=== PATIENT | female | born 1990 | race African-American/Black ===

== ENCOUNTER 2017-11-29 12:47 | Emergency (ER) | payer MEDICAID ==
[~2017-11-29 12:47] MED LIST: ALBUTEROL; GABA-531 PO; HUMALOG SUBCUT; INSU100C11 SUBCUT; LISI40TA4 PO; SUCR1TAB PO; ZOLP5TAB2 PO
== END 2017-11-29 14:38 | disposition left against medical advice (07) ==
LOC: ER 14:33
DX: Z53.21 Procedure and treatment not carried out due to patient leaving prior to being seen by health care provider (principal)

== ENCOUNTER 2017-12-17 14:54 | Inpatient (IN) | payer MEDICAID ==
[~2017-12-17] VITALS: Ht 154.9 cm; Wt 66.2 kg
[2017-12-17 15:53] LABS: BASOPHILS % 1.3 % (0.0-2.0); EOSINOPHILS % 0.5 % (0.0-5.0); HEMATOCRIT. 37.2 % (36.0-48.0); HEMOGLOBIN. 11.6 g/dL (12.0-16.0); LYMPHOCYTES % 24.6 % (20.0-50.0); MEAN CORPUSCULAR HEMOGLOBIN 27.8 pg (28.0-32.0); MEAN CORPUSCULAR VOLUME 89.1 fL (81.0-99.0); MEAN PLATELET VOLUME 8.2 fl (7.4-10.4); MONOCYTES % 4.3 % (2.0-8.0); NEUTROPHILS % 69.3 % (40.0-76.0); PLATELET 287 x1000/uL (130-400); RED BLOOD CELL COUNT 4.17 mill/uL (4.2-5.4); RED CELL DISTRIBUTION WIDTH 15.2 % (11.6-14.6)
[2017-12-17 15:57] LABS: CHLORIDE 88 mEq/L (98-107)
[2017-12-17 15:59] LABS: INR 0.9; PROTHROMBIN TIME 9.8 sec (9.4-11.6)
[2017-12-17] MEDS ORDERED: SODIUM CHLORIDE 0.9% 1,000 ML IV ONE ×2 (16:15→18:30)
[2017-12-17 16:54] LABS: CLARITY URINE CLEAR (CLEAR); COLOR URINE YELLOW (YELLOW); KETONES URINE TRACE (NEGATIVE); LEUKOCYTE ESTERASE URINE NEGATIVE (NEGATIVE); NITRITE URINE NEGATIVE (NEGATIVE); OCCULT BLOOD URINE NEGATIVE (NEGATIVE); PH URINE 6.5 (4.5-8.0); PROTEIN URINE NEGATIVE (NEGATIVE); SPECIFIC GRAVITY URINE 1.028 (1.005-1.030); UROBILINOGEN URINE 0.2 E.U./dL (0.2-1.0)
[2017-12-17] MEDS ORDERED: INSULIN REGULAR (DRIP) 100 UNITS in SODIUM CHLORIDE 0.9% 99 ML IV ONE ×2 (18:21→18:45)
[2017-12-17] MEDS ORDERED: MORPHINE SULFATE 4 MG/ML CPJ (NOT FOR IM USE) IV ONE (18:30)
[2017-12-17] MEDS ORDERED: ONDANSETRON HCL 4MG/2ML VIAL IV ONE (18:30)
[2017-12-17 18:50] LABS: PHOSPHORUS 4.7 mg/dL (2.5-4.9)
[2017-12-17] MEDS ORDERED: DIPHENHYDRAMINE 50MG/ML VIAL IV ONE (19:30)
[2017-12-17 20:22] LABS: CHLORIDE 102 mEq/L (98-107)
[2017-12-17 22:36] VITALS: BP 115/74
[2017-12-17 23:00] VITALS: BP 115/78
[2017-12-17 23:11] LABS: CHLORIDE 107 mEq/L (98-107)
[2017-12-17 23:26] LABS: PHOSPHORUS 3.1 mg/dL (2.5-4.9)
[2017-12-17] MEDS: HYDROMORPHONE HCL/PF 2MG/ML CPJ IM PRN (23:26)
[2017-12-17] MEDS: ONDANSETRON HCL 4MG/2ML VIAL IV PRN (23:26)
[2017-12-17 23:33] VITALS: BP_SYST 115; BP_SYST 125; BP_DIAS 72; BP_DIAS 79
[2017-12-17] MEDS: DIPHENHYDRAMINE 50MG/ML VIAL IV PRN (23:37)
[2017-12-18] VITALS (36 sets, daily range): BP systolic 95–128; BP diastolic 48–96
[2017-12-18] MEDS: SODIUM CHL 0.9% + KCL 20MEQ/L 1,000 ML IV SCH ×4 (00:36→20:01)
[2017-12-18] MEDS ORDERED: DEXTROSE 50% WATER 50ML SYRINGE IV PRN ×2 (00:45)
[2017-12-18] MEDS ORDERED: INSULIN REGULAR (DRIP) 100 UNITS in SODIUM CHLORIDE 0.9% 99 ML IV PRN (01:00)
[2017-12-18] MEDS: HYDROMORPHONE HCL/PF 2MG/ML CPJ IM PRN ×2 (04:02→08:57)
[2017-12-18] MEDS ORDERED: INSULIN LISPRO 100 UNITS/ML SUBCUT SCH (07:00)
[2017-12-18 07:06] LABS: CHLORIDE 103 mEq/L (98-107)
[2017-12-18 07:12] LABS: PHOSPHORUS 4.1 mg/dL (2.5-4.9)
[2017-12-18] MEDS: BLOOD SUGAR DIAGNOSTIC STRIP TEST SCH ×4 (08:08→20:17)
[2017-12-18] MEDS: INSULIN LISPRO 100 UNITS/ML SUBCUT SCH ×7 (08:20→20:26)
[2017-12-18] MEDS: GABAPENTIN 300MG CAPSULE PO SCH ×3 (08:21→18:30)
[2017-12-18] MEDS: SUCRALFATE 1G TABLET PO SCH ×4 (08:21→20:12)
[2017-12-18] MEDS: DIPHENHYDRAMINE 50MG/ML VIAL IV PRN ×2 (08:22→16:22)
[2017-12-18] MEDS: LISINOPRIL 40MG TABLET PO SCH (08:22)
[2017-12-18] MEDS: HYDROMORPHONE HCL/PF 2MG/ML CPJ IV PRN ×3 (11:59→22:28)
[2017-12-18] MEDS: HYDROCODONE/ACETAMINOPHEN 10/325MG TABLET PO PRN ×2 (13:36→20:12)
[2017-12-18] MEDS: ENOXAPARIN 40MG/0.4ML SYR SUBCUT SCH (16:35)
[2017-12-18] MEDS: INSULIN GLARGINE UD 100 UNITS/ML SYR SUBCUT SCH (22:27)
[2017-12-19 00:11] VITALS: BP 109/70
[2017-12-19] MEDS: DIPHENHYDRAMINE 50MG/ML VIAL IV PRN ×2 (01:32→14:54)
[2017-12-19] MEDS: HYDROMORPHONE HCL/PF 2MG/ML CPJ IV PRN ×6 (01:32→20:12)
[2017-12-19] MEDS: SODIUM CHL 0.9% + KCL 20MEQ/L 1,000 ML IV SCH ×3 (02:40→16:01)
[2017-12-19 04:00] VITALS: BP 107/68
[2017-12-19] MEDS: INSULIN LISPRO 100 UNITS/ML SUBCUT SCH ×7 (06:48→21:15)
[2017-12-19] MEDS: BLOOD SUGAR DIAGNOSTIC STRIP TEST SCH ×4 (06:49→21:16)
[2017-12-19 08:00] VITALS: BP 112/67
[2017-12-19] MEDS: GABAPENTIN 300MG CAPSULE PO SCH ×3 (08:20→16:01)
[2017-12-19] MEDS: SUCRALFATE 1G TABLET PO SCH ×4 (08:20→21:14)
[2017-12-19] MEDS: LISINOPRIL 40MG TABLET PO SCH (08:21)
[2017-12-19 10:47] LABS: CHLORIDE 110 mEq/L (98-107)
[2017-12-19 12:00] VITALS: BP 108/67
[2017-12-19 16:00] VITALS: BP 125/94
[2017-12-19] MEDS: ENOXAPARIN 40MG/0.4ML SYR SUBCUT SCH (16:01)
[2017-12-19 20:00] VITALS: BP 143/100
[2017-12-19] MEDS: INSULIN GLARGINE UD 100 UNITS/ML SYR SUBCUT SCH (21:15)
[2017-12-20] VITALS: BP 135/83
[2017-12-20] MEDS: HYDROMORPHONE HCL/PF 2MG/ML CPJ IV PRN ×6 (00:20→23:26)
[2017-12-20] MEDS: SODIUM CHL 0.9% + KCL 20MEQ/L 1,000 ML IV SCH ×3 (00:26→12:00)
[2017-12-20] MEDS: DIPHENHYDRAMINE 50MG/ML VIAL IV PRN ×3 (01:04→23:26)
[2017-12-20 04:00] VITALS: BP 132/95
[2017-12-20] MEDS: INSULIN LISPRO 100 UNITS/ML SUBCUT SCH ×7 (07:15→20:31)
[2017-12-20] MEDS: BLOOD SUGAR DIAGNOSTIC STRIP TEST SCH ×4 (07:16→20:32)
[2017-12-20 08:00] VITALS: BP 127/89
[2017-12-20] MEDS: LISINOPRIL 40MG TABLET PO SCH (08:09)
[2017-12-20] MEDS: GABAPENTIN 300MG CAPSULE PO SCH ×3 (08:09→16:15)
[2017-12-20] MEDS: SUCRALFATE 1G TABLET PO SCH ×4 (08:09→20:21)
[2017-12-20 12:00] VITALS: BP 123/83
[2017-12-20] MEDS ORDERED: SODIUM BICARBONATE 4% (2.4MEQ) 5ML VIAL IV ONE (13:08)
[2017-12-20] MEDS ORDERED: LIDOCAINE HCL/PF 1% 10 MG/ML 5ML VIAL ONE (13:08)
[2017-12-20 16:00] VITALS: BP 124/88
[2017-12-20] MEDS: ENOXAPARIN 40MG/0.4ML SYR SUBCUT SCH (16:15)
[2017-12-20 20:40] VITALS: BP 108/72
[2017-12-20] MEDS: INSULIN GLARGINE UD 100 UNITS/ML SYR SUBCUT SCH (21:09)
[2017-12-21 00:13] VITALS: BP 116/72
[2017-12-21] MEDS: HYDROMORPHONE HCL/PF 2MG/ML CPJ IV PRN ×8 (03:06→23:51)
[2017-12-21 05:08] VITALS: BP 113/75
[2017-12-21] MEDS: BLOOD SUGAR DIAGNOSTIC STRIP TEST SCH ×4 (06:09→21:15)
[2017-12-21] MEDS: INSULIN LISPRO 100 UNITS/ML SUBCUT SCH ×6 (06:25→21:35)
[2017-12-21] MEDS: DIPHENHYDRAMINE 50MG/ML VIAL IV PRN ×3 (07:28→21:26)
[2017-12-21 08:00] VITALS: BP 128/83
[2017-12-21] MEDS: SUCRALFATE 1G TABLET PO SCH ×4 (09:00→21:14)
[2017-12-21] MEDS: GABAPENTIN 300MG CAPSULE PO SCH ×3 (09:12→16:13)
[2017-12-21] MEDS: LISINOPRIL 40MG TABLET PO SCH (09:13)
[2017-12-21 12:00] VITALS: BP 121/74
[2017-12-21] MEDS: LORAZEPAM 2MG/ML CPJ IV PRN (13:45)
[2017-12-21 16:00] VITALS: BP 116/85
[2017-12-21] MEDS: ENOXAPARIN 40MG/0.4ML SYR SUBCUT SCH (16:10)
[2017-12-21 16:18] LABS: CHLORIDE 103 mEq/L (98-107)
[2017-12-21 18:10] LABS: BASOPHILS % 0.8 % (0.0-2.0); EOSINOPHILS % 5.7 % (0.0-5.0); HEMOGLOBIN. 9.8 g/dL (12.0-16.0); LYMPHOCYTES % 40.8 % (20.0-50.0); MEAN CORPUSCULAR HEMOGLOBIN 27.6 pg (28.0-32.0); MEAN PLATELET VOLUME 7.8 fl (7.4-10.4); MONOCYTES % 7.4 % (2.0-8.0); NEUTROPHILS % 45.3 % (40.0-76.0); PLATELET 248 x1000/uL (130-400); RED BLOOD CELL COUNT 3.54 mill/uL (4.2-5.4); RED CELL DISTRIBUTION WIDTH 14.9 % (11.6-14.6)
[2017-12-21 18:20] LABS: MEAN CORPUSCULAR VOLUME 84.9 fL (81.0-99.0)
[2017-12-21] MEDS: INSULIN GLARGINE UD 100 UNITS/ML SYR SUBCUT SCH (21:36)
[2017-12-22] VITALS (7 sets, daily range): BP systolic 114–127; BP diastolic 67–90
[2017-12-22] MEDS: HYDROMORPHONE HCL/PF 2MG/ML CPJ IV PRN ×6 (04:31→21:25)
[2017-12-22] MEDS: DIPHENHYDRAMINE 50MG/ML VIAL IV PRN ×2 (05:48→15:49)
[2017-12-22] MEDS: BLOOD SUGAR DIAGNOSTIC STRIP TEST SCH ×4 (07:43→21:15)
[2017-12-22] MEDS: INSULIN LISPRO 100 UNITS/ML SUBCUT SCH ×4 (08:10→21:21)
[2017-12-22] MEDS: SUCRALFATE 1G TABLET PO SCH ×5 (09:00→21:23)
[2017-12-22] MEDS: GABAPENTIN 300MG CAPSULE PO SCH ×3 (09:04→16:44)
[2017-12-22] MEDS: LISINOPRIL 40MG TABLET PO SCH (10:10)
[2017-12-22] MEDS: ENOXAPARIN 40MG/0.4ML SYR SUBCUT SCH (16:00)
[2017-12-22] MEDS: INSULIN GLARGINE UD 100 UNITS/ML SYR SUBCUT SCH (21:22)
[2017-12-22] MEDS: LORAZEPAM 2MG/ML CPJ IV PRN (22:43)
[2017-12-23] VITALS (7 sets, daily range): BP systolic 108–130; BP diastolic 66–101
[2017-12-23] MEDS: HYDROMORPHONE HCL/PF 2MG/ML CPJ IV PRN ×7 (00:34→21:23)
[2017-12-23] MEDS: DIPHENHYDRAMINE 50MG/ML VIAL IV PRN ×3 (00:41→17:58)
[2017-12-23] MEDS: BLOOD SUGAR DIAGNOSTIC STRIP TEST SCH ×4 (05:54→21:00)
[2017-12-23] MEDS: INSULIN LISPRO 100 UNITS/ML SUBCUT SCH ×4 (06:40→21:00)
[2017-12-23 07:42] LABS: BASOPHILS % 0.8 % (0.0-2.0); EOSINOPHILS % 7.9 % (0.0-5.0); HEMATOCRIT. 28.2 % (36.0-48.0); HEMOGLOBIN. 9.3 g/dL (12.0-16.0); LYMPHOCYTES % 37.1 % (20.0-50.0); MEAN CORPUSCULAR HEMOGLOBIN 28.1 pg (28.0-32.0); MEAN CORPUSCULAR VOLUME 85.5 fL (81.0-99.0); MEAN PLATELET VOLUME 7.8 fl (7.4-10.4); MONOCYTES % 8.6 % (2.0-8.0); NEUTROPHILS % 45.6 % (40.0-76.0); PLATELET 223 x1000/uL (130-400); RED CELL DISTRIBUTION WIDTH 14.7 % (11.6-14.6)
[2017-12-23 08:06] LABS: CHLORIDE 97 mEq/L (98-107)
[2017-12-23] MEDS: LISINOPRIL 40MG TABLET PO SCH (08:41)
[2017-12-23] MEDS: SUCRALFATE 1G TABLET PO SCH ×5 (09:00→21:20)
[2017-12-23] MEDS: GABAPENTIN 300MG CAPSULE PO SCH ×3 (09:18→17:58)
[2017-12-23] MEDS: LORAZEPAM 2MG/ML CPJ IV PRN (10:39)
[2017-12-23] MEDS ORDERED: HYDROCODONE/ACETAMINOPHEN 10/325MG TABLET PO PRN (12:15)
[2017-12-23] MEDS: ENOXAPARIN 40MG/0.4ML SYR SUBCUT SCH (17:59)
[2017-12-23] MEDS: INSULIN GLARGINE UD 100 UNITS/ML SYR SUBCUT SCH (21:22)
[2017-12-24] VITALS: BP 103/65
[2017-12-24] MEDS: LORAZEPAM 2MG/ML CPJ IV PRN (00:01)
[2017-12-24 04:00] VITALS: BP 130/86
[2017-12-24] MEDS: HYDROMORPHONE HCL/PF 2MG/ML CPJ IV PRN ×5 (04:52→20:10)
[2017-12-24] MEDS: DIPHENHYDRAMINE 50MG/ML VIAL IV PRN ×3 (05:14→21:27)
[2017-12-24] MEDS: BLOOD SUGAR DIAGNOSTIC STRIP TEST SCH ×4 (07:26→21:26)
[2017-12-24 08:00] VITALS: BP 117/78
[2017-12-24] MEDS: INSULIN LISPRO 100 UNITS/ML SUBCUT SCH ×5 (08:29→20:21)
[2017-12-24] MEDS: SUCRALFATE 1G TABLET PO SCH ×4 (09:00→20:08)
[2017-12-24] MEDS: GABAPENTIN 300MG CAPSULE PO SCH ×3 (09:45→17:00)
[2017-12-24] MEDS: LISINOPRIL 40MG TABLET PO SCH (09:48)
[2017-12-24] MEDS: LIDOCAINE 5% PATCH TOP SCH (10:31)
[2017-12-24 12:00] VITALS: BP 119/85
[2017-12-24 16:00] VITALS: BP 126/90
[2017-12-24] MEDS: ENOXAPARIN 40MG/0.4ML SYR SUBCUT SCH (16:44)
[2017-12-24] MEDS ORDERED: INSULIN LISPRO 100 UNITS/ML SUBCUT NR (17:45)
[2017-12-24] MEDS ORDERED: NON FORMULARY PATIENT HOME MED EA SUBCUT SCH (17:45)
[2017-12-24 20:00] VITALS: BP 118/91
[2017-12-24] MEDS: INSULIN GLARGINE UD 100 UNITS/ML SYR SUBCUT SCH (21:30)
[2017-12-24] MEDS: ONDANSETRON HCL 4MG/2ML VIAL IV PRN (21:36)
[2017-12-25] VITALS: BP 113/82
[2017-12-25] MEDS: HYDROMORPHONE HCL/PF 2MG/ML CPJ IV PRN ×4 (02:14→12:38)
[2017-12-25 04:00] VITALS: BP 108/70
[2017-12-25] MEDS: BLOOD SUGAR DIAGNOSTIC STRIP TEST SCH ×2 (05:16→12:21)
[2017-12-25] MEDS: DIPHENHYDRAMINE 50MG/ML VIAL IV PRN ×2 (05:41→13:07)
[2017-12-25] MEDS: INSULIN LISPRO 100 UNITS/ML SUBCUT SCH ×4 (06:07→13:14)
[2017-12-25 07:03] LABS: BASOPHILS % 0.9 % (0.0-2.0); EOSINOPHILS % 7.9 % (0.0-5.0); HEMATOCRIT. 26.9 % (36.0-48.0); HEMOGLOBIN. 8.8 g/dL (12.0-16.0); LYMPHOCYTES % 37.3 % (20.0-50.0); MEAN CORPUSCULAR HEMOGLOBIN 27.6 pg (28.0-32.0); MEAN CORPUSCULAR VOLUME 84.3 fL (81.0-99.0); MEAN PLATELET VOLUME 7.9 fl (7.4-10.4); MONOCYTES % 9.8 % (2.0-8.0); NEUTROPHILS % 44.1 % (40.0-76.0); PLATELET 216 x1000/uL (130-400); RED BLOOD CELL COUNT 3.19 mill/uL (4.2-5.4); RED CELL DISTRIBUTION WIDTH 14.8 % (11.6-14.6)
[2017-12-25 08:00] VITALS: BP 100/65
[2017-12-25 08:01] LABS: CHLORIDE 97 mEq/L (98-107)
[2017-12-25] MEDS: LISINOPRIL 40MG TABLET PO SCH (09:00)
[2017-12-25] MEDS: SUCRALFATE 1G TABLET PO SCH ×2 (09:00→13:00)
[2017-12-25] MEDS: GABAPENTIN 300MG CAPSULE PO SCH ×2 (09:35→13:13)
[2017-12-25] MEDS: LIDOCAINE 5% PATCH TOP SCH (09:36)
[2017-12-25 12:00] VITALS: BP 108/80
[2017-12-25 14:00] VITALS: BP 108/80
[2017-12-25] MEDS: ONDANSETRON HCL 4MG/2ML VIAL IV PRN (14:13)
== END 2017-12-25 14:51 | disposition home or self-care (01) | DRG 58 ==
LOC: ER 15:40 → CVICU 19:27 → ENRESERV 20:02 → 7WST 12-18 23:53
PROVIDERS: ADMIT Internal Medicine; ATTEND Internal Medicine
PROC: 02HV33Z Insertion of Infusion Device into Superior Vena Cava, Percutaneous Approach (ICD-10-PCS; principal; 2017-12-20)
PROC: B548ZZA Ultrasonography of Superior Vena Cava, Guidance (ICD-10-PCS; 2017-12-20)
PROC: B5181ZA Fluoroscopy of Superior Vena Cava using Low Osmolar Contrast, Guidance (ICD-10-PCS; 2017-12-20)
DX: G72.89 Other specified myopathies (principal); E11.65 Type 2 diabetes mellitus with hyperglycemia; I10 Essential (primary) hypertension; E87.1 Hypo-osmolality and hyponatremia; F17.200 Nicotine dependence, unspecified, uncomplicated; J45.909 Unspecified asthma, uncomplicated; K21.9 Gastro-esophageal reflux disease without esophagitis; Z88.1 Allergy status to other antibiotic agents; Z88.0 Allergy status to penicillin; Z88.8 Allergy status to other drugs, medicaments and biological substances; Z79.4 Long term (current) use of insulin; Z79.899 Other long term (current) drug therapy; Z72.89 Other problems related to lifestyle; Z98.891 History of uterine scar from previous surgery
CPT/HCPCS: 36415; 36569; 73718; 76937; 77001; 80048; 80053; 81003; 82947; 82962; 83036; 83690; 83735; 84100; 85025; 85610; 93922; 93971; 96361; 96365; 96366; 96367; 99291; 99406; C1725; C1892; C1893; J1170; J1200; J1650; J1815; J2060; J2270; J2405; J3480; J3490; J7030; J7050

== ENCOUNTER 2018-01-04 16:19 | Inpatient (IN) | payer MEDICAID ==
[~2018-01-04] VITALS: Ht 152.4 cm; Wt 59.9 kg
[2018-01-04] MEDS ORDERED: SODIUM CHLORIDE 0.9% 1,000 ML IV ONE ×2 (16:35→17:16)
[2018-01-04] MEDS ORDERED: ONDANSETRON HCL 4MG/2ML VIAL IV STA (17:16)
[2018-01-04] MEDS ORDERED: MORPHINE SULFATE 4 MG/ML CPJ (NOT FOR IM USE) IV STA (17:16)
[2018-01-04 17:49] LABS: CLARITY URINE CLOUDY (CLEAR); COLOR URINE YELLOW (YELLOW); KETONES URINE 1+ (NEGATIVE); LEUKOCYTE ESTERASE URINE NEGATIVE (NEGATIVE); NITRITE URINE NEGATIVE (NEGATIVE); OCCULT BLOOD URINE NEGATIVE (NEGATIVE); PROTEIN URINE TRACE (NEGATIVE); SPECIFIC GRAVITY URINE 1.037 (1.005-1.030); UROBILINOGEN URINE 0.2 E.U./dL (0.2-1.0)
[2018-01-04 17:59] LABS: *AMPHETAMINES SCREEN URINE NEGATIVE (NEGATIVE); *BARBITURATES SCREEN URINE NEGATIVE (NEGATIVE); *BENZODIAZEPINES SCREEN URINE NEGATIVE (NEGATIVE); *COCAINE SCREEN URINE NEGATIVE (NEGATIVE); METHADONE URINE SCREEN NEGATIVE (NEGATIVE); OPIATES URINE SCREEN NEGATIVE (NEGATIVE)
[2018-01-04 18:00] LABS: CANNABINOID URINE SCREEN NEGATIVE (NEGATIVE); PHENCYCLIDINE URINE SCREEN NEGATIVE (NEGATIVE)
[2018-01-04] MEDS ORDERED: DIPHENHYDRAMINE 50MG/ML VIAL IV ONE (18:15)
[2018-01-04 18:33] LABS: CHLORIDE 100 mEq/L (98-107)
[2018-01-04 18:42] LABS: BETA HYDROXYBUTYRATE 1.1 mMol/L (0.0-0.3)
[2018-01-04] MEDS ORDERED: INSULIN REGULAR (HUMULIN R) 300UNITS/3ML SUBCUT ONE (18:45)
[2018-01-04 19:41] LABS: D-DIMER 0.36 mg/L FEU (<0.50); HCG SCREEN NEGATIVE; PARTIAL THROMBOPLASTIN TIME 22.2 sec (23.4-31.0); PROTHROMBIN TIME 10.1 sec (9.4-11.6)
[2018-01-04] MEDS ORDERED: MORPHINE SULFATE 10 MG/ML CPJ IM ONE (20:00)
[2018-01-04 20:01] LABS: BASOPHILS % 1.1 % (0.0-2.0); HEMATOCRIT. 39.4 % (36.0-48.0); HEMOGLOBIN. 12.7 g/dL (12.0-16.0); LYMPHOCYTES % 43.8 % (20.0-50.0); MEAN CORPUSCULAR VOLUME 83.3 fL (81.0-99.0); MEAN PLATELET VOLUME 7.8 fl (7.4-10.4); MONOCYTES % 6.1 % (2.0-8.0); PLATELET 353 x1000/uL (130-400); RED BLOOD CELL COUNT 4.73 mill/uL (4.2-5.4); RED CELL DISTRIBUTION WIDTH 15.6 % (11.6-14.6)
[2018-01-05] VITALS (9 sets, daily range): BP systolic 100–118; BP diastolic 58–79
[2018-01-05] MEDS ORDERED: GABA800T97 PO (00:11)
[2018-01-05] MEDS ORDERED: LISI-186 PO (00:11)
[2018-01-05] MEDS ORDERED: DEXTROSE 50% WATER 50ML SYRINGE IV PRN (02:15)
[2018-01-05] MEDS: MORPHINE SULFATE 4 MG/ML CPJ (NOT FOR IM USE) IV PRN ×2 (02:33→08:41)
[2018-01-05] MEDS ORDERED: LANTUSUD SUBCUT (02:45)
[2018-01-05] MEDS ORDERED: ZOLPIDEM TARTRATE 5MG TABLET PO PRN (03:00)
[2018-01-05] MEDS ORDERED: IPRATROPIUM/ALBUTEROL 0.5-3(2.5)MG/3ML NEB HHN PRN (03:15)
[2018-01-05] MEDS: GABAPENTIN 300MG CAPSULE PO SCH ×2 (05:20→15:04)
[2018-01-05] MEDS: SUCRALFATE 1G TABLET PO SCH ×3 (06:49→17:54)
[2018-01-05] MEDS: INSULIN LISPRO 100 UNITS/ML SUBCUT SCH ×6 (06:49→17:40)
[2018-01-05] MEDS: BLOOD SUGAR DIAGNOSTIC STRIP TEST SCH ×3 (07:10→17:10)
[2018-01-05] MEDS ORDERED: LISINOPRIL 5MG TABLET PO SCH (09:00)
[2018-01-05] MEDS ORDERED: SODIUM CHLORIDE 0.45% 1,000 ML IV SCH (10:00)
[2018-01-05] MEDS ORDERED: INSULIN GLARGINE UD 100 UNITS/ML SYR SUBCUT SCH ×2 (10:00)
[2018-01-05] MEDS: HYDROMORPHONE HCL/PF 2MG/ML CPJ IV PRN ×2 (12:34→19:08)
[2018-01-05] MEDS ORDERED: DIPHENHYDRAMINE 50MG/ML VIAL IV PRN (13:45)
[2018-01-05] MEDS ORDERED: GABAPENTIN 300MG CAPSULE PO SCH (15:30)
[2018-01-05] MEDS ORDERED: LEVOFLOXACIN 500MG TABLET PO SCH (15:30)
== END 2018-01-05 19:50 | disposition short-term general hospital (02) | DRG 203 ==
LOC: ER 17:20 → 8WST 20:12 → EDBEDREQ 20:18 → ENRESERV 20:56
PROVIDERS: ADMIT Internal Medicine; ATTEND Internal Medicine
DX: M94.0 Chondrocostal junction syndrome [Tietze] (principal); E10.40 Type 1 diabetes mellitus with diabetic neuropathy, unspecified; I10 Essential (primary) hypertension; A59.9 Trichomoniasis, unspecified; J45.909 Unspecified asthma, uncomplicated; N39.0 Urinary tract infection, site not specified; E10.319 Type 1 diabetes mellitus with unspecified diabetic retinopathy without macular edema; E86.0 Dehydration; M54.9 Dorsalgia, unspecified; K21.9 Gastro-esophageal reflux disease without esophagitis; Z79.4 Long term (current) use of insulin; Z80.3 Family history of malignant neoplasm of breast; Z82.49 Family history of ischemic heart disease and other diseases of the circulatory system; Z83.3 Family history of diabetes mellitus; Z88.1 Allergy status to other antibiotic agents; Z88.0 Allergy status to penicillin; Z88.8 Allergy status to other drugs, medicaments and biological substances
CPT/HCPCS: 36415; 71045; 78582; 80053; 80305; 81003; 82010; 82962; 83605; 83690; 83880; 84484; 84703; 85025; 85379; 85610; 85730; 87040; 87077; 87086; 87186; 93005; 93970; A9558; J1170; J1200; J1815; J2270; J2405; J7030

== ENCOUNTER 2018-06-17 20:40 | Inpatient (IN) | payer MEDICAID ==
[~2018-06-17] VITALS: Ht 165.1 cm; Wt 60.3 kg
[~2018-06-17 20:40] MED LIST changes: +ACET5SOL2 PO; +ALBU6.7H INH; -ALBUTEROL; +DILT120C11 MT; -HUMALOG SUBCUT; -INSU100C11 SUBCUT; +INSU100I24 SQ; -LISI40TA4 PO; -SUCR1TAB PO; -ZOLP5TAB2 PO
[2018-06-17] MEDS ORDERED: SODIUM CHLORIDE 0.9% 1,000 ML IV ONE ×2 (21:16→23:47)
[2018-06-17 21:51] LABS: BG BASE EXCESS -17.9 mmol/L (-2.0-2.0); BG CARBOXYHEMOGLOBIN 0.9 % (0.5-1.5); BG DEOXYHEMOGLOBIN 2.5 % (0.0-5.0); BG FRACTION INSPIRED OXYGEN 21; BG METHEMOGLOBIN 0.5 % (0.0-1.5); BG OXYGEN SATURATION 97.5 % (92.0-98.5); BG OXYHEMOGLOBIN 96.1 % (94.0-97.0); BG PCO2 20.4 mmHg (35.0-45.0); BG PO2 114.9 mmHg (75.0-100.0); BG SAMPLE SITE LEFT RADIAL; BG TOTAL HEMOGLOBIN 12.2 g/dL (12.0-18.0); BG VENT MODE ROOM AIR
[2018-06-17] MEDS ORDERED: ONDANSETRON HCL 4MG/2ML INJ IV ONE (22:00)
[2018-06-17 23:29] LABS: CLARITY URINE CLEAR (CLEAR); COLOR URINE YELLOW (YELLOW); KETONES URINE 4+ (NEGATIVE); LEUKOCYTE ESTERASE URINE NEGATIVE (NEGATIVE); NITRITE URINE NEGATIVE (NEGATIVE); OCCULT BLOOD URINE NEGATIVE (NEGATIVE); PROTEIN URINE NEGATIVE (NEGATIVE); SPECIFIC GRAVITY URINE 1.023 (1.005-1.030); UROBILINOGEN URINE 0.2 E.U./dL (0.2-1.0)
[2018-06-17] MEDS ORDERED: LORAZEPAM 2MG/ML CPJ IV ONE (23:30)
[2018-06-17 23:50] LABS: *AMPHETAMINES SCREEN URINE NEGATIVE (NEGATIVE); *BARBITURATES SCREEN URINE NEGATIVE (NEGATIVE); *BENZODIAZEPINES SCREEN URINE NEGATIVE (NEGATIVE); *COCAINE SCREEN URINE NEGATIVE (NEGATIVE); METHADONE URINE SCREEN NEGATIVE (NEGATIVE)
[2018-06-17 23:51] LABS: CANNABINOID URINE SCREEN NEGATIVE (NEGATIVE); PHENCYCLIDINE URINE SCREEN NEGATIVE (NEGATIVE)
[2018-06-17 23:53] LABS: OPIATES URINE SCREEN PRESUMTIVE POSITIVE (NEGATIVE)
[2018-06-18] VITALS (30 sets, daily range): BP systolic 96–145; BP diastolic 55–87
[2018-06-18 00:59] LABS: CHLORIDE 102 mEq/L (98-107)
[2018-06-18 01:00] LABS: HCG SCREEN NEGATIVE
[2018-06-18 01:02] LABS: ETHANOL BLOOD < 10 mg/dL
[2018-06-18 01:03] LABS: AMMONIA 41 uMol/L (<32)
[2018-06-18 01:05] LABS: BASOPHILS % 0.6 % (0.0-2.0); HEMATOCRIT. 36.4 % (36.0-48.0); HEMOGLOBIN. 10.7 g/dL (12.0-16.0); LYMPHOCYTES % 9.1 % (20.0-50.0); MEAN CORPUSCULAR HEMOGLOBIN 26.8 pg (28.0-32.0); MEAN PLATELET VOLUME 7.9 fl (7.4-10.4); NEUTROPHILS % 87.3 % (40.0-76.0); PLATELET 301 x1000/uL (130-400); RED CELL DISTRIBUTION WIDTH 16.2 % (11.6-14.6)
[2018-06-18 01:08] LABS: CREATINE KINASE 40 IU/L (26-192)
[2018-06-18] MEDS ORDERED: SODIUM CHLORIDE 0.9% 1,000 ML IV STA (01:29)
[2018-06-18] MEDS: INSULIN REGULAR (DRIP) 100 UNITS in SODIUM CHLORIDE 0.9% 99 ML IV SCH ×2 (02:21→07:01)
[2018-06-18 03:19] LABS: CHLORIDE 103 mEq/L (98-107)
[2018-06-18 04:16] LABS: BETA HYDROXYBUTYRATE 12.7 mMol/L (0.0-0.3)
[2018-06-18 04:38] LABS: PHOSPHORUS 6.6 mg/dL (2.5-4.9)
[2018-06-18] MEDS ORDERED: ONDANSETRON HCL 4MG/2ML INJ IV PRN (06:15)
[2018-06-18] MEDS ORDERED: BLOOD SUGAR DIAGNOSTIC STRIP TEST SCH (06:30)
[2018-06-18] MEDS ORDERED: DEXTROSE 50% WATER 50ML SYRINGE IV PRN (06:30)
[2018-06-18] MEDS: SODIUM CHLORIDE 0.9% 1,000 ML IV SCH ×2 (07:01→07:44)
[2018-06-18] MEDS: BLOOD SUGAR DIAGNOSTIC STRIP TEST SCH ×16 (08:00→23:41)
[2018-06-18 09:02] LABS: CHLORIDE 112 mEq/L (98-107)
[2018-06-18 09:08] LABS: PHOSPHORUS 3.3 mg/dL (2.5-4.9)
[2018-06-18] MEDS: DEXT 5%/0.45% NACL 1000ML 1,000 ML IV SCH ×2 (12:28→20:16)
[2018-06-18] MEDS: DIPHENHYDRAMINE 50MG/ML VIAL IV PRN ×2 (15:17→21:21)
[2018-06-18] MEDS: MORPHINE SULFATE 4 MG/ML CPJ (NOT FOR IM USE) IV PRN ×2 (15:18→20:16)
[2018-06-18 16:05] LABS: CHLORIDE 108 mEq/L (98-107)
[2018-06-18] MEDS: INSULIN REGULAR (DRIP) 100 UNITS in SODIUM CHLORIDE 0.9% 99 ML IV PRN (22:53)
[2018-06-19] VITALS (26 sets, daily range): BP systolic 101–146; BP diastolic 68–94
[2018-06-19] MEDS: BLOOD SUGAR DIAGNOSTIC STRIP TEST SCH ×23 (00:38→23:21)
[2018-06-19] MEDS: DEXTROSE 50% WATER 50ML SYRINGE IV PRN ×2 (00:56→23:22)
[2018-06-19] MEDS: MORPHINE SULFATE 4 MG/ML CPJ (NOT FOR IM USE) IV PRN ×6 (00:57→21:40)
[2018-06-19 01:14] LABS: CHLORIDE 113 mEq/L (98-107)
[2018-06-19] MEDS ORDERED: POTASSIUM CHLORIDE INJ 40 MEQ in DEXT 5% WATER 250 ML IV SCH (03:00)
[2018-06-19] MEDS: DIPHENHYDRAMINE 50MG/ML VIAL IV PRN ×5 (05:38→21:34)
[2018-06-19] MEDS: DEXT 5%/0.45% NACL 1000ML 1,000 ML IV SCH ×3 (05:38→16:24)
[2018-06-19 06:01] LABS: CHLORIDE 112 mEq/L (98-107)
[2018-06-19 08:57] LABS: BASOPHILS % 0.4 % (0.0-2.0); EOSINOPHILS % 2.4 % (0.0-5.0); HEMATOCRIT. 31.3 % (36.0-48.0); HEMOGLOBIN. 10.2 g/dL (12.0-16.0); LYMPHOCYTES % 36.7 % (20.0-50.0); MEAN CORPUSCULAR HEMOGLOBIN 27.3 pg (28.0-32.0); MEAN CORPUSCULAR VOLUME 83.5 fL (81.0-99.0); MEAN PLATELET VOLUME 6.9 fl (7.4-10.4); MONOCYTES % 6.2 % (2.0-8.0); NEUTROPHILS % 54.3 % (40.0-76.0); PLATELET 272 x1000/uL (130-400); RED BLOOD CELL COUNT 3.75 mill/uL (4.2-5.4); RED CELL DISTRIBUTION WIDTH 15.6 % (11.6-14.6)
[2018-06-19 12:20] LABS: CHLORIDE 112 mEq/L (98-107)
[2018-06-19 15:32] LABS: PHOSPHORUS 2.1 mg/dL (2.5-4.9)
[2018-06-19] MEDS ORDERED: MAGNESIUM SULFATE 2 GM in DEXTROSE 5% WATER 50 ML IV NR (17:30)
[2018-06-19] MEDS ORDERED: POTASSIUM PHOS,M-BASIC-D-BASIC 15 MMOL in DEXT 5% WATER 245 ML IV NR (18:00)
[2018-06-19] MEDS ORDERED: MAGNESIUM 2 G PREMIX 50 ML IV NR (18:30)
[2018-06-19 19:09] LABS: CHLORIDE 111 mEq/L (98-107)
[2018-06-20] VITALS (17 sets, daily range): BP systolic 114–137; BP diastolic 61–97
[2018-06-20] MEDS: BLOOD SUGAR DIAGNOSTIC STRIP TEST SCH ×9 (00:37→08:00)
[2018-06-20 00:56] LABS: CHLORIDE 110 mEq/L (98-107)
[2018-06-20 01:02] LABS: PHOSPHORUS 3.6 mg/dL (2.5-4.9)
[2018-06-20] MEDS: MORPHINE SULFATE 4 MG/ML CPJ (NOT FOR IM USE) IV PRN ×3 (01:54→09:30)
[2018-06-20] MEDS: DIPHENHYDRAMINE 50MG/ML VIAL IV PRN ×3 (01:55→09:30)
[2018-06-20] MEDS: DEXT 5%/0.45% NACL 1000ML 1,000 ML IV SCH (02:05)
[2018-06-20] MEDS: INSULIN REGULAR (DRIP) 100 UNITS in SODIUM CHLORIDE 0.9% 99 ML IV PRN (05:24)
[2018-06-20 06:05] LABS: CHLORIDE 111 mEq/L (98-107)
[2018-06-20] MEDS ORDERED: DEXTROSE 50% WATER 50ML SYRINGE IV PRN (08:45)
[2018-06-20] MEDS ORDERED: INSULIN GLARGINE UD 100 UNITS/ML SYR SUBCUT SCH (10:00)
[2018-06-20] MEDS ORDERED: DIPHENHYDRAMINE 50MG/ML VIAL IV NR (12:15)
[2018-06-20] MEDS ORDERED: MORPHINE SULFATE 4 MG/ML CPJ (NOT FOR IM USE) IV NR (12:15)
[2018-06-20] MEDS ORDERED: BLOOD SUGAR DIAGNOSTIC STRIP TEST SCH (12:50)
[2018-06-20] MEDS ORDERED: INSULIN LISPRO 100 UNITS/ML SUBCUT SCH (13:20)
== END 2018-06-20 15:40 | disposition home or self-care (01) | DRG 420 ==
LOC: ER 20:57 → CVICU 06-18 01:27 → EDBEDREQTM 06-18 01:29 → EDBEDREQ 06-18 01:29 → ENRESERV 06-18 02:24
PROVIDERS: ADMIT Internal Medicine; ATTEND Internal Medicine
PROC: 02H633Z Insertion of Infusion Device into Right Atrium, Percutaneous Approach (ICD-10-PCS; principal; 2018-06-18)
PROC: B244ZZZ Ultrasonography of Right Heart (ICD-10-PCS; 2018-06-18)
DX: E11.10 Type 2 diabetes mellitus with ketoacidosis without coma (principal); E44.1 Mild protein-calorie malnutrition; E87.5 Hyperkalemia; J45.909 Unspecified asthma, uncomplicated; D64.9 Anemia, unspecified; Z82.49 Family history of ischemic heart disease and other diseases of the circulatory system; Z91.14 Patient's other noncompliance with medication regimen; Z83.3 Family history of diabetes mellitus; Z98.891 History of uterine scar from previous surgery; Z68.22 Body mass index [BMI] 22.0-22.9, adult; Z88.0 Allergy status to penicillin; Z88.1 Allergy status to other antibiotic agents; Z88.6 Allergy status to analgesic agent; Z88.8 Allergy status to other drugs, medicaments and biological substances; Z88.4 Allergy status to anesthetic agent; Z79.4 Long term (current) use of insulin; Z79.899 Other long term (current) drug therapy
CPT/HCPCS: 36415; 36556; 36600; 71045; 76937; 80048; 80053; 80305; 80307; 81003; 81025; 82010; 82140; 82375; 82550; 82805; 82962; 83690; 83735; 84100; 84443; 84703; 85025; 93005; 96374; 96375; 99291; C1725; G0482; J1200; J1815; J2060; J2270; J2405; J3475; J3480; J3490; J7030; J7050; J7060

== ENCOUNTER 2018-10-01 14:43 | Inpatient (IN) | payer MEDICAID ==
[~2018-10-01] VITALS: Ht 154.9 cm; Wt 64.9 kg
[~2018-10-01 14:43] MED LIST changes: +LIDOCAINE HCL/PF 1% 2ML VIAL ONE
[2018-10-01] MEDS ORDERED: SODIUM CHLORIDE 0.9% 1,000 ML IV ONE (15:10)
[2018-10-01] MEDS ORDERED: ONDANSETRON HCL 4MG/2ML INJ IV STA ×2 (15:10→16:50)
[2018-10-01] MEDS ORDERED: INSULIN REGULAR (HUMULIN R) UD 100 UNITS/ML SYR SUBCUT ONE (15:15)
[2018-10-01] MEDS ORDERED: ACETAMINOPHEN 325MG TABLET PO ONE (15:15)
[2018-10-01 15:54] LABS: BASOPHILS % 0.5 % (0.0-2.0); EOSINOPHILS % 0.2 % (0.0-5.0); HEMATOCRIT. 37.2 % (36.0-48.0); HEMOGLOBIN. 11.3 g/dL (12.0-16.0); LYMPHOCYTES % 18.9 % (20.0-50.0); MEAN CORPUSCULAR HEMOGLOBIN 25.8 pg (28.0-32.0); MEAN CORPUSCULAR VOLUME 85.1 fL (81.0-99.0); MONOCYTES % 3.9 % (2.0-8.0); NEUTROPHILS % 76.5 % (40.0-76.0); PLATELET 309 x1000/uL (130-400); RED BLOOD CELL COUNT 4.38 mill/uL (4.2-5.4); RED CELL DISTRIBUTION WIDTH 17.6 % (11.6-14.6)
[2018-10-01 15:58] LABS: BG BASE EXCESS -6.6 mmol/L (-2.0-2.0); BG CARBOXYHEMOGLOBIN 1.3 % (0.5-1.5); BG DEOXYHEMOGLOBIN 3.1 % (0.0-5.0); BG FRACTION INSPIRED OXYGEN 21; BG HCO3 ACT 18.2 mmol/L (22.0-26.0); BG OXYGEN SATURATION 96.9 % (92.0-98.5); BG OXYHEMOGLOBIN 95.6 % (94.0-97.0); BG PCO2 34.2 mmHg (35.0-45.0); BG PH 7.345 (7.350-7.450); BG SAMPLE SITE RIGHT BRACHIAL; BG TOTAL HEMOGLOBIN 11.1 g/dL (12.0-18.0); BG VENT MODE ROOM AIR
[2018-10-01 16:03] LABS: INR 0.9; PARTIAL THROMBOPLASTIN TIME 20.6 sec (23.4-31.0)
[2018-10-01 16:05] LABS: CHLORIDE 93 mEq/L (98-107)
[2018-10-01 16:08] LABS: HCG SCREEN NEGATIVE
[2018-10-01 16:13] LABS: PROTHROMBIN TIME 8.9 sec (9.1-11.1)
[2018-10-01] MEDS ORDERED: INSULIN REGULAR (HUMULIN R) 300UNITS/3ML SUBCUT ONE (16:15)
[2018-10-01 16:16] LABS: BETA HYDROXYBUTYRATE 4.5 mMol/L (0.0-0.3)
[2018-10-01] MEDS ORDERED: MORPHINE SULFATE 4 MG/ML CPJ (NOT FOR IM USE) IV STA (16:50)
[2018-10-01] MEDS ORDERED: DIPHENHYDRAMINE 50MG/ML VIAL IV ONE (17:00)
[2018-10-01] MEDS ORDERED: KCL 20MEQ/100ML PREMIX 100 ML IV ONE (17:00)
[2018-10-01] MEDS ORDERED: INSULIN REGULAR (DRIP) 100 UNITS in SODIUM CHLORIDE 0.9% 99 ML IV ONE (17:15)
[2018-10-01 17:49] LABS: CLARITY URINE CLEAR (CLEAR); COLOR URINE YELLOW (YELLOW); KETONES URINE 3+ (NEGATIVE); LEUKOCYTE ESTERASE URINE NEGATIVE (NEGATIVE); NITRITE URINE NEGATIVE (NEGATIVE); OCCULT BLOOD URINE TRACE (NEGATIVE); PROTEIN URINE NEGATIVE (NEGATIVE); UROBILINOGEN URINE 0.2 E.U./dL (0.2-1.0)
[2018-10-01 17:58] LABS: PHOSPHORUS 5.6 mg/dL (2.5-4.9)
[2018-10-01 21:34] LABS: CHLORIDE 109 mEq/L (98-107)
[2018-10-01] MEDS: SODIUM CHLORIDE 0.9% 1,000 ML IV SCH (22:45)
[2018-10-01] MEDS: ONDANSETRON HCL 4MG/2ML INJ IV PRN (23:27)
[2018-10-01] MEDS: MORPHINE SULFATE 4 MG/ML CPJ (NOT FOR IM USE) IV PRN (23:27)
[2018-10-01] MEDS: DIPHENHYDRAMINE 50MG/ML VIAL IV PRN (23:27)
[2018-10-01 23:41] LABS: CHLORIDE 113 mEq/L (98-107)
[2018-10-02 02:07] LABS: CHLORIDE 116 mEq/L (98-107)
[2018-10-02] MEDS: ONDANSETRON HCL 4MG/2ML INJ IV PRN ×4 (04:38→19:30)
[2018-10-02] MEDS: MORPHINE SULFATE 4 MG/ML CPJ (NOT FOR IM USE) IV PRN ×5 (04:38→23:59)
[2018-10-02 05:44] LABS: CHLORIDE 112 mEq/L (98-107)
[2018-10-02 05:50] LABS: PHOSPHORUS 3.4 mg/dL (2.5-4.9)
[2018-10-02] MEDS ORDERED: INSULIN GLARGINE UD 100 UNITS/ML SYR SUBCUT SCH ×2 (08:00→22:00)
[2018-10-02] MEDS: SODIUM CHLORIDE 0.9% 1,000 ML IV SCH ×2 (08:45→18:45)
[2018-10-02] MEDS ORDERED: DEXTROSE 50% WATER 50ML SYRINGE IV PRN (10:15)
[2018-10-02] MEDS: DIPHENHYDRAMINE 50MG/ML VIAL IV PRN ×3 (10:33→23:58)
[2018-10-02] MEDS: INSULIN LISPRO 100 UNITS/ML SUBCUT SCH ×3 (14:46→19:32)
[2018-10-02] MEDS ORDERED: CLONIDINE 0.1MG TABLET PO PRN (16:15)
[2018-10-02] MEDS: BLOOD SUGAR DIAGNOSTIC STRIP TEST SCH ×2 (17:00→21:00)
[2018-10-02 20:00] VITALS: BP 131/94
[2018-10-02] MEDS: AMLODIPINE 5MG TABLET PO SCH (22:10)
[2018-10-02 22:52] VITALS: BP 131/94
[2018-10-03] VITALS: BP 131/93
[2018-10-03] MEDS: INSULIN LISPRO 100 UNITS/ML SUBCUT SCH ×6 (00:19→21:40)
[2018-10-03] MEDS: INSULIN GLARGINE UD 100 UNITS/ML SYR SUBCUT SCH ×2 (00:30→10:17)
[2018-10-03 04:00] VITALS: BP 136/95
[2018-10-03] MEDS: SODIUM CHLORIDE 0.9% 1,000 ML IV SCH ×2 (04:45→14:42)
[2018-10-03] MEDS: DIPHENHYDRAMINE 50MG/ML VIAL IV PRN ×2 (06:22→14:41)
[2018-10-03] MEDS: MORPHINE SULFATE 4 MG/ML CPJ (NOT FOR IM USE) IV PRN ×4 (06:23→18:13)
[2018-10-03] MEDS: BLOOD SUGAR DIAGNOSTIC STRIP TEST SCH ×4 (06:47→20:15)
[2018-10-03 08:00] VITALS: BP 129/82
[2018-10-03] MEDS: AMLODIPINE 5MG TABLET PO SCH ×2 (08:43→20:14)
[2018-10-03] MEDS: ENOXAPARIN 80MG/0.8ML SYR SUBCUT SCH ×2 (08:48→20:17)
[2018-10-03 12:00] VITALS: BP 120/88
[2018-10-03] MEDS ORDERED: INSULIN LISPRO 100 UNITS/ML SUBCUT SCH (12:20)
[2018-10-03 16:00] VITALS: BP 131/70
[2018-10-03 17:23] LABS: BASOPHILS % 0.5 % (0.0-2.0); EOSINOPHILS % 1.9 % (0.0-5.0); HEMATOCRIT. 31.9 % (36.0-48.0); HEMOGLOBIN. 10.1 g/dL (12.0-16.0); LYMPHOCYTES % 32.8 % (20.0-50.0); MEAN CORPUSCULAR HEMOGLOBIN 25.8 pg (28.0-32.0); MEAN CORPUSCULAR VOLUME 81.4 fL (81.0-99.0); MEAN PLATELET VOLUME 7.4 fl (7.4-10.4); MONOCYTES % 5.5 % (2.0-8.0); NEUTROPHILS % 59.3 % (40.0-76.0); PLATELET 269 x1000/uL (130-400); RED BLOOD CELL COUNT 3.92 mill/uL (4.2-5.4); RED CELL DISTRIBUTION WIDTH 17.3 % (11.6-14.6)
[2018-10-03 17:31] LABS: CHLORIDE 102 mEq/L (98-107)
[2018-10-03 20:00] VITALS: BP 101/70
[2018-10-03] MEDS: HYDROCODONE/ACETAMINOPHEN 5/325MG TABLET PO PRN (21:34)
[2018-10-03 22:11] LABS: HEMATOCRIT 30.8 % (36.0-48.0)
[2018-10-04] VITALS (7 sets, daily range): BP systolic 112–122; BP diastolic 74–86
[2018-10-04] MEDS: DIPHENHYDRAMINE 50MG/ML VIAL IV PRN ×4 (01:36→21:49)
[2018-10-04] MEDS: MORPHINE SULFATE 4 MG/ML CPJ (NOT FOR IM USE) IV PRN ×4 (01:37→21:49)
[2018-10-04] MEDS: HYDROCODONE/ACETAMINOPHEN 5/325MG TABLET PO PRN (04:53)
[2018-10-04] MEDS: BLOOD SUGAR DIAGNOSTIC STRIP TEST SCH ×4 (06:42→21:00)
[2018-10-04] MEDS: INSULIN LISPRO 100 UNITS/ML SUBCUT SCH ×6 (07:58→22:18)
[2018-10-04] MEDS: ENOXAPARIN 80MG/0.8ML SYR SUBCUT SCH ×2 (09:26→21:00)
[2018-10-04] MEDS: AMLODIPINE 5MG TABLET PO SCH ×2 (09:26→21:49)
[2018-10-04] MEDS ORDERED: INSULIN GLARGINE UD 100 UNITS/ML SYR SUBCUT SCH (10:00)
[2018-10-04 18:57] LABS: CHLORIDE 103 mEq/L (98-107)
[2018-10-05] VITALS (7 sets, daily range): BP systolic 106–119; BP diastolic 68–85
[2018-10-05] MEDS: MORPHINE SULFATE 4 MG/ML CPJ (NOT FOR IM USE) IV PRN ×4 (02:29→17:07)
[2018-10-05] MEDS: DIPHENHYDRAMINE 50MG/ML VIAL IV PRN ×3 (06:37→21:56)
[2018-10-05] MEDS: INSULIN LISPRO 100 UNITS/ML SUBCUT SCH ×7 (07:12→22:08)
[2018-10-05] MEDS: BLOOD SUGAR DIAGNOSTIC STRIP TEST SCH ×4 (07:12→21:00)
[2018-10-05] MEDS: ENOXAPARIN 80MG/0.8ML SYR SUBCUT SCH ×2 (08:55→21:43)
[2018-10-05] MEDS: AMLODIPINE 5MG TABLET PO SCH ×3 (08:56→21:44)
[2018-10-05] MEDS: INSULIN GLARGINE UD 100 UNITS/ML SYR SUBCUT SCH ×2 (11:14→22:03)
[2018-10-05] MEDS: SODIUM CHLORIDE 0.9% 1,000 ML IV SCH (16:45)
[2018-10-06] VITALS: BP 109/71
[2018-10-06 00:08] LABS: CREATINE KINASE 34 IU/L (26-192)
[2018-10-06] MEDS: MORPHINE SULFATE 4 MG/ML CPJ (NOT FOR IM USE) IV PRN ×3 (01:58→10:37)
[2018-10-06] MEDS: DIPHENHYDRAMINE 50MG/ML VIAL IV PRN ×2 (03:51→13:09)
[2018-10-06 04:00] VITALS: BP 112/77
[2018-10-06] MEDS: INSULIN LISPRO 100 UNITS/ML SUBCUT SCH ×3 (07:20→12:50)
[2018-10-06] MEDS: BLOOD SUGAR DIAGNOSTIC STRIP TEST SCH ×2 (07:20→13:09)
[2018-10-06 08:00] VITALS: BP 111/78
[2018-10-06] MEDS: ENOXAPARIN 80MG/0.8ML SYR SUBCUT SCH (10:37)
[2018-10-06] MEDS: INSULIN GLARGINE UD 100 UNITS/ML SYR SUBCUT SCH (10:43)
[2018-10-06 12:00] VITALS: BP 106/70
[2018-10-06] MEDS: SODIUM CHLORIDE 0.9% 1,000 ML IV SCH (12:45)
[2018-10-06 13:37] LABS: CHLORIDE 105 mEq/L (98-107)
[2018-10-06 17:09] LABS: HEMATOCRIT 33.4 % (36.0-48.0); HEMOGLOBIN 10.5 g/dL (12.0-16.0); MEAN CORPUSCULAR HEMOGLOBIN 25.7 pg (28.0-32.0); MEAN CORPUSCULAR VOLUME 81.5 fL (81.0-99.0); PLATELET 241 x1000/uL (130-400); RED BLOOD CELL COUNT 4.09 mill/uL (4.2-5.4); RED CELL DISTRIBUTION WIDTH 17.9 % (11.6-14.6)
== END 2018-10-06 16:47 | disposition home or self-care (01) | DRG 420 ==
LOC: ER 14:43 → EDBEDREQTM 17:51 → EDBEDREQSVC 17:51 → EDBEDREQ 17:51 → EDBEDREQSVC 18:06 → EDBEDREQ 18:06 → EDBEDREQTM 18:06 → EDBEDREQSVC 10-02 06:19 → ENRESERV 10-02 15:51 → 6EST 10-02 17:48
PROVIDERS: ADMIT Internal Medicine; ATTEND Internal Medicine
PROC: 06HY33Z Insertion of Infusion Device into Lower Vein, Percutaneous Approach (ICD-10-PCS; principal; 2018-10-01)
PROC: B54BZZA Ultrasonography of Right Lower Extremity Veins, Guidance (ICD-10-PCS; 2018-10-01)
DX: E10.10 Type 1 diabetes mellitus with ketoacidosis without coma (principal); E44.0 Moderate protein-calorie malnutrition; I82.413 Acute embolism and thrombosis of femoral vein, bilateral; I48.91 Unspecified atrial fibrillation; R16.0 Hepatomegaly, not elsewhere classified; G89.4 Chronic pain syndrome; I10 Essential (primary) hypertension; J45.909 Unspecified asthma, uncomplicated; Z79.4 Long term (current) use of insulin; Z82.49 Family history of ischemic heart disease and other diseases of the circulatory system; Z83.3 Family history of diabetes mellitus; Z98.891 History of uterine scar from previous surgery; Z88.8 Allergy status to other drugs, medicaments and biological substances; Z88.0 Allergy status to penicillin; Z88.5 Allergy status to narcotic agent; Z88.1 Allergy status to other antibiotic agents; Z88.6 Allergy status to analgesic agent; Z79.899 Other long term (current) drug therapy; Z68.27 Body mass index [BMI] 27.0-27.9, adult
CPT/HCPCS: 36415; 36600; 71045; 73718; 76700; 78582; 80048; 81025; 82010; 82375; 82550; 82805; 82962; 83036; 83605; 83735; 83880; 84100; 84484; 84703; 85014; 85018; 85027; 93005; 93970; 96372; 96374; 96375; 96376; 97162; 99291; A9558; C1893; J1200; J1650; J1815; J2270; J2405; J3480; J3490; J7030; J7050

== ENCOUNTER 2018-12-09 09:54 | Emergency (ER) | payer MEDICAID ==
[~2018-12-09] VITALS: Ht 160 cm; Wt 60.0 kg
[~2018-12-09 09:54] MED LIST changes: -LIDOCAINE HCL/PF 1% 2ML VIAL ONE
[2018-12-09] MEDS ORDERED: SODIUM CHLORIDE 0.9% 1,000 ML IV ONE (10:46)
[2018-12-09] MEDS ORDERED: MORPHINE SULFATE 4 MG/ML CPJ (NOT FOR IM USE) IV ONE (11:00)
[2018-12-09] MEDS ORDERED: DIPHENHYDRAMINE 50MG/ML VIAL IV ONE (11:00)
[2018-12-09] MEDS ORDERED: KETOROLAC 30MG/ML VIAL IV ONE (11:00)
[2018-12-09 11:04] LABS: BASOPHILS % 0.5 % (0.0-2.0); EOSINOPHILS % 0.1 % (0.0-5.0); HEMATOCRIT. 35.7 % (36.0-48.0); HEMOGLOBIN. 11.2 g/dL (12.0-16.0); LYMPHOCYTES % 16.3 % (20.0-50.0); MEAN CORPUSCULAR HEMOGLOBIN 24.8 pg (28.0-32.0); MEAN CORPUSCULAR VOLUME 78.9 fL (81.0-99.0); MEAN PLATELET VOLUME 7.3 fl (7.4-10.4); MONOCYTES % 4.8 % (2.0-8.0); NEUTROPHILS % 78.3 % (40.0-76.0); PLATELET 324 x1000/uL (130-400); RED BLOOD CELL COUNT 4.53 mill/uL (4.2-5.4); RED CELL DISTRIBUTION WIDTH 17.1 % (11.6-14.6)
[2018-12-09 11:05] LABS: CLARITY URINE CLEAR (CLEAR); COLOR URINE YELLOW (YELLOW); KETONES URINE NEGATIVE (NEGATIVE); LEUKOCYTE ESTERASE URINE 1+ (NEGATIVE); NITRITE URINE NEGATIVE (NEGATIVE); OCCULT BLOOD URINE TRACE (NEGATIVE); PH URINE 7.5 (4.5-8.0); PROTEIN URINE 1+ (NEGATIVE); SPECIFIC GRAVITY URINE 1.025 (1.005-1.030); UROBILINOGEN URINE 0.2 E.U./dL (0.2-1.0)
[2018-12-09 11:10] LABS: CHLORIDE 99 mEq/L (98-107)
[2018-12-09 11:18] LABS: BETA HYDROXYBUTYRATE 0.2 mMol/L (0.0-0.3)
[2018-12-09 11:37] LABS: BG BASE EXCESS 1.5 mmol/L (-2.0-2.0); BG CARBOXYHEMOGLOBIN 1.6 % (0.5-1.5); BG DEOXYHEMOGLOBIN 2.3 % (0.0-5.0); BG FRACTION INSPIRED OXYGEN 21; BG HCO3 ACT 26.5 mmol/L (22.0-26.0); BG METHEMOGLOBIN 0.3 % (0.0-1.5); BG OXYGEN SATURATION 97.7 % (92.0-98.5); BG OXYHEMOGLOBIN 95.8 % (94.0-97.0); BG PCO2 43.4 mmHg (35.0-45.0); BG PH 7.404 (7.350-7.450); BG PO2 103.1 mmHg (75.0-100.0); BG SAMPLE SITE RIGHT RADIAL; BG TOTAL HEMOGLOBIN 11.7 g/dL (12.0-18.0); BG VENT MODE ROOM AIR
[2018-12-09] MEDS ORDERED: LEVOFLOXACIN 750MG PREMIX 150 ML IV ONE (12:00)
[2018-12-09] MEDS ORDERED: INSULIN REGULAR (HUMULIN R) 300UNITS/3ML IV ONE (12:00)
[2018-12-09] MEDS ORDERED: ACETAMINOPHEN 325MG TABLET PO ONE (13:00)
[2018-12-09 13:24] VITALS: BP 155/97
== END 2018-12-09 13:37 | disposition home or self-care (01) ==
LOC: ER 09:54
DX: N39.0 Urinary tract infection, site not specified (principal); M79.18 Myalgia, other site; E11.65 Type 2 diabetes mellitus with hyperglycemia; R00.1 Bradycardia, unspecified; I10 Essential (primary) hypertension; J45.909 Unspecified asthma, uncomplicated; I48.91 Unspecified atrial fibrillation; Z98.890 Other specified postprocedural states; Z79.01 Long term (current) use of anticoagulants; Z88.5 Allergy status to narcotic agent; Z79.4 Long term (current) use of insulin
CPT/HCPCS: 36415; 36600; 80053; 81003; 81025; 82010; 82375; 82805; 82962; 83690; 85025; 87077; 87086; 87186; 93005; 96365; 96375; 99284; J1200; J1815; J1885; J1956; J2270; J7030

== ENCOUNTER 2018-12-16 21:59 | Inpatient (IN) | payer MEDICAID ==
[~2018-12-16] VITALS: Ht 160 cm; Wt 59.9 kg
[2018-12-17] MEDS ORDERED: ONDANSETRON HCL 4MG/2ML INJ IV STA (01:31)
[2018-12-17] MEDS ORDERED: SODIUM CHLORIDE 0.9% 1,000 ML IV ONE (01:31)
[2018-12-17] MEDS ORDERED: KETOROLAC 30MG/ML VIAL IV ONE (01:45)
[2018-12-17 01:57] LABS: CHLORIDE 99 mEq/L (98-107)
[2018-12-17] MEDS ORDERED: DIPHENHYDRAMINE 50MG/ML VIAL IV ONE ×3 (02:00→05:30)
[2018-12-17 02:02] LABS: HEMOGLOBIN. 11.6 g/dL (12.0-16.0); MEAN CORPUSCULAR HEMOGLOBIN 24.6 pg (28.0-32.0); MEAN CORPUSCULAR VOLUME 76.5 fL (81.0-99.0); MEAN PLATELET VOLUME 6.8 fl (7.4-10.4); NEUTROPHILS % 63.1 % (40.0-76.0); PLATELET 367 x1000/uL (130-400); RED BLOOD CELL COUNT 4.71 mill/uL (4.2-5.4); RED CELL DISTRIBUTION WIDTH 16.5 % (11.6-14.6)
[2018-12-17 02:03] LABS: BASOPHILS % 0.5 % (0.0-2.0); EOSINOPHILS % 0.5 % (0.0-5.0); MONOCYTES % 6.9 % (2.0-8.0)
[2018-12-17 02:05] LABS: CREATINE KINASE 218 IU/L (26-192)
[2018-12-17] MEDS ORDERED: MORPHINE SULFATE 4 MG/ML CPJ (NOT FOR IM USE) IV ONE ×2 (02:45→05:30)
[2018-12-17] MEDS ORDERED: CLINDAMYCIN 600 MG in DEXTROSE 5% WATER 50 ML IV ONE (04:30)
[2018-12-17] MEDS ORDERED: CLINDAMYCIN 600MG PREMIX 50 ML IV SCH (05:00)
[2018-12-17 09:55] VITALS: BP 141/90
[2018-12-17] MEDS ORDERED: IPRATROPIUM/ALBUTEROL 0.5-3(2.5)MG/3ML NEB INH PRN (10:45)
[2018-12-17] MEDS ORDERED: MAGNESIUM/ALUMINUM HYDROXIDE/SIMETHICONE 30ML UDC PO PRN (10:45)
[2018-12-17] MEDS ORDERED: CLONIDINE 0.1MG TABLET PO PRN (10:45)
[2018-12-17] MEDS ORDERED: GUAIFENESIN 200MG/10ML SUGAR FREE UDC PO PRN (10:45)
[2018-12-17] MEDS ORDERED: ACETAMINOPHEN 325MG TABLET PO PRN (10:45)
[2018-12-17] MEDS ORDERED: DOCUSATE SODIUM 100MG CAPSULE PO PRN (10:45)
[2018-12-17] MEDS: HYDROCODONE/ACETAMINOPHEN 5/325MG TABLET PO PRN ×2 (11:53→16:27)
[2018-12-17] MEDS: DIPHENHYDRAMINE 50MG/ML VIAL IV PRN ×2 (11:54→16:23)
[2018-12-17 12:00] VITALS: BP 140/97
[2018-12-17] MEDS: MORPHINE SULFATE 4 MG/ML CPJ (NOT FOR IM USE) IV PRN ×2 (12:15→18:43)
[2018-12-17 12:29] LABS: PHOSPHORUS 4.2 mg/dL (2.5-4.9)
[2018-12-17 13:13] LABS: HEPATITIS B SURFACE ANTIGEN NEGATIVE
[2018-12-17] MEDS ORDERED: VANCOMYCIN 1500MG in DEXTROSE 5% WATER 250ML IV NR (14:00)
[2018-12-17 14:15] LABS: HEPATITIS A AB IGM NEGATIVE (NEGATIVE)
[2018-12-17 15:39] VITALS: BP 153/107
[2018-12-17] MEDS: DILTIAZEM HCL 120MG CAPSULE CD 24HR PO SCH ×2 (15:57→20:44)
[2018-12-17] MEDS: LISINOPRIL 40MG TABLET PO SCH (15:57)
[2018-12-17 18:17] LABS: C REACTIVE PROTEIN QUANT 3.4 mg/L (0.0-3.0)
[2018-12-17] MEDS: HYDROXYCHLOROQUINE SULFATE 200MG TABLET PO SCH (18:42)
[2018-12-17 20:00] VITALS: BP 155/98
[2018-12-17] MEDS: VANCOMYCIN 750 MG PREMIX 150 ML IV SCH (21:04)
[2018-12-17] MEDS: GABAPENTIN 300MG CAPSULE PO SCH (21:04)
[2018-12-17] MEDS: BLOOD SUGAR DIAGNOSTIC STRIP TEST SCH (21:24)
[2018-12-17] MEDS: INSULIN LISPRO 100 UNITS/ML SUBCUT SCH (21:31)
[2018-12-18] VITALS: BP 150/89
[2018-12-18 00:09] LABS: CREATINE KINASE 292 IU/L (26-192)
[2018-12-18] MEDS: DIPHENHYDRAMINE 50MG/ML VIAL IV PRN ×5 (00:22→22:47)
[2018-12-18] MEDS: MORPHINE SULFATE 4 MG/ML CPJ (NOT FOR IM USE) IV PRN ×4 (00:24→22:47)
[2018-12-18] MEDS: HYDROCODONE/ACETAMINOPHEN 5/325MG TABLET PO PRN ×3 (02:50→13:02)
[2018-12-18 04:00] VITALS: BP 158/89
[2018-12-18] MEDS: VANCOMYCIN 750 MG PREMIX 150 ML IV SCH ×3 (05:08→22:00)
[2018-12-18] MEDS: BLOOD SUGAR DIAGNOSTIC STRIP TEST SCH ×4 (05:44→20:55)
[2018-12-18] MEDS: INSULIN LISPRO 100 UNITS/ML SUBCUT SCH ×5 (05:54→22:05)
[2018-12-18] MEDS: GABAPENTIN 300MG CAPSULE PO SCH ×3 (05:54→22:00)
[2018-12-18] MEDS ORDERED: INSULIN LISPRO 100 UNITS/ML SUBCUT SCH (06:30)
[2018-12-18 07:03] LABS: BASOPHILS % 0.5 % (0.0-2.0); EOSINOPHILS % 0.5 % (0.0-5.0); HEMATOCRIT. 34.7 % (36.0-48.0); HEMOGLOBIN. 10.9 g/dL (12.0-16.0); LYMPHOCYTES % 29.4 % (20.0-50.0); MEAN CORPUSCULAR HEMOGLOBIN 24.3 pg (28.0-32.0); MEAN CORPUSCULAR VOLUME 77.6 fL (81.0-99.0); MEAN PLATELET VOLUME 7.4 fl (7.4-10.4); MONOCYTES % 7.2 % (2.0-8.0); NEUTROPHILS % 62.4 % (40.0-76.0); PLATELET 340 x1000/uL (130-400); RED BLOOD CELL COUNT 4.46 mill/uL (4.2-5.4); RED CELL DISTRIBUTION WIDTH 17.3 % (11.6-14.6)
[2018-12-18 07:12] LABS: HIV SCREEN 4G Non Reactive (Non Reactive)
[2018-12-18 07:22] LABS: CHLORIDE 100 mEq/L (98-107)
[2018-12-18 07:34] LABS: CREATINE KINASE 294 IU/L (26-192); HDL CHOLESTEROL 84 mg/dL (40-59)
[2018-12-18 07:36] LABS: LDL CHOLESTEROL 62 mg/dL (5-100)
[2018-12-18 07:38] LABS: C REACTIVE PROTEIN QUANT 4.2 mg/L (0.0-3.0)
[2018-12-18 08:00] VITALS: BP 154/109
[2018-12-18] MEDS: HYDROXYCHLOROQUINE SULFATE 200MG TABLET PO SCH ×2 (09:08→18:25)
[2018-12-18] MEDS: LISINOPRIL 40MG TABLET PO SCH (09:08)
[2018-12-18] MEDS: DILTIAZEM HCL 120MG CAPSULE CD 24HR PO SCH ×2 (09:08→21:00)
[2018-12-18] MEDS: HYDROMORPHONE HCL/PF 2MG/ML CPJ IV PRN ×2 (09:47→17:53)
[2018-12-18 12:00] VITALS: BP 128/86
[2018-12-18 16:00] VITALS: BP 107/85
[2018-12-18 18:23] LABS: CREATINE KINASE 251 IU/L (26-192)
[2018-12-18 20:00] VITALS: BP 105/64
[2018-12-18] MEDS ORDERED: LIDOCAINE HCL 1% 20ML VIAL (Pyxis) INJ INFIL ONE (21:00)
[2018-12-18] MEDS ORDERED: MEDROXYPROGESTERONE ACETATE 150MG/ML VIAL IM ONE (21:00)
[2018-12-18] MEDS ORDERED: METHYLPREDNISOLONE ACETATE 40MG/ML VIAL IM NR (21:15)
[2018-12-18] MEDS ORDERED: LIDOCAINE HCL/PF 1% 10 MG/ML 5ML VIAL IJ ONE (21:30)
[2018-12-18] MEDS ORDERED: LORAZEPAM 2MG/ML CPJ IV PRN (21:45)
[2018-12-19] VITALS: BP 126/78
[2018-12-19] MEDS: HYDROMORPHONE HCL/PF 2MG/ML CPJ IV PRN ×3 (01:39→18:07)
[2018-12-19 04:00] VITALS: BP 115/75
[2018-12-19] MEDS: DIPHENHYDRAMINE 50MG/ML VIAL IV PRN ×4 (04:52→21:06)
[2018-12-19] MEDS: MORPHINE SULFATE 4 MG/ML CPJ (NOT FOR IM USE) IV PRN ×3 (04:52→23:06)
[2018-12-19] MEDS: GABAPENTIN 300MG CAPSULE PO SCH ×3 (06:00→21:10)
[2018-12-19] MEDS: VANCOMYCIN 750 MG PREMIX 150 ML IV SCH (06:00)
[2018-12-19] MEDS: BLOOD SUGAR DIAGNOSTIC STRIP TEST SCH ×4 (06:32→21:18)
[2018-12-19] MEDS: INSULIN LISPRO 100 UNITS/ML SUBCUT SCH ×4 (06:55→21:17)
[2018-12-19 08:00] VITALS: BP 108/68
[2018-12-19] MEDS ORDERED: LIDOCAINE HCL 1% 20ML VIAL (Pyxis) INJ ONE (08:32)
[2018-12-19] MEDS ORDERED: SODIUM BICARBONATE 4% (2.4MEQ) 5ML VIAL IV ONE (08:32)
[2018-12-19] MEDS: LISINOPRIL 40MG TABLET PO SCH (09:00)
[2018-12-19] MEDS: DILTIAZEM HCL 120MG CAPSULE CD 24HR PO SCH ×2 (09:00→21:15)
[2018-12-19] MEDS: HYDROXYCHLOROQUINE SULFATE 200MG TABLET PO SCH ×3 (09:00→16:54)
[2018-12-19 09:06] LABS: G6PD RBC 4.47 x10E6/uL (3.77-5.28)
[2018-12-19] MEDS: HYDROCODONE/ACETAMINOPHEN 5/325MG TABLET PO PRN (09:15)
[2018-12-19 13:06] LABS: G6PD QUANTITATIVE 417 (146-376)
[2018-12-19] MEDS ORDERED: INSULIN LISPRO 100 UNITS/ML SUBCUT SCH (16:30)
[2018-12-19 20:00] VITALS: BP 116/81
[2018-12-19] MEDS ORDERED: INSULIN GLARGINE UD 100 UNITS/ML SYR SUBCUT NR (22:00)
[2018-12-20] VITALS (12 sets, daily range): BP systolic 76–127; BP diastolic 44–81
[2018-12-20] MEDS: HYDROMORPHONE HCL/PF 2MG/ML CPJ IV PRN (02:51)
[2018-12-20] MEDS: DIPHENHYDRAMINE 50MG/ML VIAL IV PRN ×2 (02:51→09:02)
[2018-12-20] MEDS: MORPHINE SULFATE 4 MG/ML CPJ (NOT FOR IM USE) IV PRN ×2 (04:15→08:53)
[2018-12-20 04:16] LABS: ANTI-JO 1 ABS <0.2 AI (0.0-0.9); RNP ANTIBODY < 0.2 AI (0.0-0.9); SMITH ANTIBODY < 0.2 AI (0.0-0.9)
[2018-12-20] MEDS: GABAPENTIN 300MG CAPSULE PO SCH ×3 (05:32→22:00)
[2018-12-20] MEDS: BLOOD SUGAR DIAGNOSTIC STRIP TEST SCH ×4 (05:32→20:35)
[2018-12-20] MEDS: INSULIN LISPRO 100 UNITS/ML SUBCUT SCH ×9 (06:35→21:00)
[2018-12-20] MEDS ORDERED: INSULIN LISPRO 100 UNITS/ML SUBCUT NR ×2 (08:45→21:00)
[2018-12-20] MEDS: DILTIAZEM HCL 120MG CAPSULE CD 24HR PO SCH ×2 (08:52→20:36)
[2018-12-20] MEDS: HYDROXYCHLOROQUINE SULFATE 200MG TABLET PO SCH ×2 (08:52→17:00)
[2018-12-20] MEDS: LISINOPRIL 40MG TABLET PO SCH (08:52)
[2018-12-20 09:06] LABS: ANTI-DNA DOUBLE STRANDED QUANT 1 IU/mL (0-9)
[2018-12-20 09:39] LABS: CREATINE KINASE 162 IU/L (26-192)
[2018-12-20] MEDS ORDERED: INSULIN GLARGINE UD 100 UNITS/ML SYR SUBCUT SCH ×2 (10:00→22:00)
[2018-12-20] MEDS ORDERED: INSULIN GLARGINE UD 100 UNITS/ML SYR SUBCUT NR ×2 (10:00→19:00)
[2018-12-20] MEDS ORDERED: SODIUM CHLORIDE 0.9% 500 ML IV ONE (12:45)
[2018-12-20] MEDS ORDERED: NALOXONE HCL 0.4 MG/ML 1ML VIAL IV NR (14:00)
[2018-12-20] MEDS: DEXTROSE 50% WATER 50ML SYRINGE IV PRN (14:04)
[2018-12-20] MEDS ORDERED: NALOXONE HCL 1 MG/ML 2ML VIAL IV NR (14:15)
[2018-12-20] MEDS ORDERED: MORPHINE SULFATE 4 MG/ML CPJ (NOT FOR IM USE) IV PRN (14:30)
[2018-12-20 14:36] LABS: CHLORIDE 104 mEq/L (98-107)
[2018-12-20 14:37] LABS: EOSINOPHILS % 1.2 % (0.0-5.0); HEMATOCRIT. 31.6 % (36.0-48.0); LYMPHOCYTES % 27.3 % (20.0-50.0); MEAN CORPUSCULAR HEMOGLOBIN 24.6 pg (28.0-32.0); MEAN CORPUSCULAR VOLUME 78.1 fL (81.0-99.0); MEAN PLATELET VOLUME 7.4 fl (7.4-10.4); MONOCYTES % 7.3 % (2.0-8.0); NEUTROPHILS % 62.2 % (40.0-76.0); PLATELET 313 x1000/uL (130-400); RED BLOOD CELL COUNT 4.05 mill/uL (4.2-5.4); RED CELL DISTRIBUTION WIDTH 17.2 % (11.6-14.6)
[2018-12-20] MEDS ORDERED: EPINEPHRINE 0.1MG/ML (1:10,000) 10ML SYR IV SCH (14:45)
[2018-12-20] MEDS ORDERED: CELECOXIB 200MG CAPSULE PO PRN (15:00)
[2018-12-20 17:06] LABS: ANA IFA Negative (.)
[2018-12-20] MEDS: HYDROCODONE/ACETAMINOPHEN 5/325MG TABLET PO PRN (20:25)
[2018-12-20] MEDS ORDERED: INSULIN REGULAR (HUMULIN R) UD 100 UNITS/ML SYR SUBCUT NR (22:00)
[2018-12-20] MEDS: INSULIN GLARGINE UD 100 UNITS/ML SYR SUBCUT SCH (22:00)
[2018-12-20] MEDS ORDERED: CELECOXIB 200MG CAPSULE PO NR (22:56)
[2018-12-21 04:00] VITALS: BP 114/74
[2018-12-21] MEDS: HYDROCODONE/ACETAMINOPHEN 5/325MG TABLET PO PRN ×2 (04:41→15:52)
[2018-12-21] MEDS: GABAPENTIN 300MG CAPSULE PO SCH ×3 (05:29→21:58)
[2018-12-21 05:51] LABS: BASOPHILS % 0.4 % (0.0-2.0); CHLORIDE 100 mEq/L (98-107); EOSINOPHILS % 1.9 % (0.0-5.0); HEMATOCRIT. 31.1 % (36.0-48.0); LYMPHOCYTES % 37.2 % (20.0-50.0); MEAN CORPUSCULAR HEMOGLOBIN 24.7 pg (28.0-32.0); MEAN CORPUSCULAR VOLUME 76.5 fL (81.0-99.0); MONOCYTES % 8.8 % (2.0-8.0); NEUTROPHILS % 51.7 % (40.0-76.0); PLATELET 288 x1000/uL (130-400); RED BLOOD CELL COUNT 4.06 mill/uL (4.2-5.4); RED CELL DISTRIBUTION WIDTH 16.9 % (11.6-14.6)
[2018-12-21 06:00] LABS: PHOSPHORUS 3.8 mg/dL (2.5-4.9)
[2018-12-21] MEDS: BLOOD SUGAR DIAGNOSTIC STRIP TEST SCH ×4 (06:17→21:56)
[2018-12-21] MEDS: INSULIN LISPRO 100 UNITS/ML SUBCUT SCH ×7 (06:58→21:00)
[2018-12-21 08:00] VITALS: BP 109/66
[2018-12-21] MEDS: DILTIAZEM HCL 120MG CAPSULE CD 24HR PO SCH ×2 (09:00→21:00)
[2018-12-21 09:06] LABS: ALDOLASE 6.6 U/L (3.3-10.3)
[2018-12-21] MEDS: HYDROXYCHLOROQUINE SULFATE 200MG TABLET PO SCH ×2 (09:32→17:49)
[2018-12-21] MEDS: CELECOXIB 200MG CAPSULE PO SCH ×2 (09:33→17:49)
[2018-12-21] MEDS: DIPHENHYDRAMINE 12.5MG/5ML UDC PO PRN ×2 (09:33→18:55)
[2018-12-21] MEDS: INSULIN GLARGINE UD 100 UNITS/ML SYR SUBCUT SCH ×2 (09:33→21:54)
[2018-12-21] MEDS: MORPHINE SULFATE 4 MG/ML CPJ (NOT FOR IM USE) IV PRN ×4 (09:34→23:38)
[2018-12-21 12:00] VITALS: BP 101/63
[2018-12-21] MEDS ORDERED: INSULIN GLARGINE UD 100 UNITS/ML SYR SUBCUT SCH (16:00)
[2018-12-21 17:09] LABS: ANGIOTENSION CONVERTING ENZYME < 15 U/L (14-82)
[2018-12-21] MEDS: LORAZEPAM 2MG/ML CPJ IV PRN (17:51)
[2018-12-21 20:00] VITALS: BP 103/66
[2018-12-22] VITALS: BP 110/85
[2018-12-22] MEDS: LORAZEPAM 2MG/ML CPJ IV PRN ×2 (01:32→07:52)
[2018-12-22 04:00] VITALS: BP 121/87
[2018-12-22] MEDS: MORPHINE SULFATE 4 MG/ML CPJ (NOT FOR IM USE) IV PRN ×2 (05:27→10:03)
[2018-12-22] MEDS: GABAPENTIN 300MG CAPSULE PO SCH ×3 (06:00→21:33)
[2018-12-22] MEDS: BLOOD SUGAR DIAGNOSTIC STRIP TEST SCH ×4 (06:17→20:59)
[2018-12-22] MEDS: INSULIN LISPRO 100 UNITS/ML SUBCUT SCH ×7 (06:57→21:37)
[2018-12-22] MEDS: DILTIAZEM HCL 120MG CAPSULE CD 24HR PO SCH ×2 (07:52→20:58)
[2018-12-22] MEDS: CELECOXIB 200MG CAPSULE PO SCH ×2 (07:52→16:54)
[2018-12-22] MEDS: HYDROXYCHLOROQUINE SULFATE 200MG TABLET PO SCH ×2 (07:52→16:54)
[2018-12-22 08:00] VITALS: BP 142/86
[2018-12-22 08:42] LABS: BASOPHILS % 0.8 % (0.0-2.0); EOSINOPHILS % 1.9 % (0.0-5.0); HEMOGLOBIN. 9.8 g/dL (12.0-16.0); LYMPHOCYTES % 44.1 % (20.0-50.0); MEAN CORPUSCULAR HEMOGLOBIN 24.3 pg (28.0-32.0); MEAN PLATELET VOLUME 7.2 fl (7.4-10.4); MONOCYTES % 7.5 % (2.0-8.0); NEUTROPHILS % 45.7 % (40.0-76.0); PLATELET 268 x1000/uL (130-400); RED BLOOD CELL COUNT 4.03 mill/uL (4.2-5.4); RED CELL DISTRIBUTION WIDTH 16.9 % (11.6-14.6)
[2018-12-22 09:11] LABS: CHLORIDE 104 mEq/L (98-107)
[2018-12-22] MEDS: INSULIN GLARGINE UD 100 UNITS/ML SYR SUBCUT SCH (10:10)
[2018-12-22] MEDS ORDERED: HYDROMORPHONE HCL/PF 2MG/ML CPJ IV PRN (11:15)
[2018-12-22] MEDS ORDERED: HYDROMORPHONE HCL/PF 2MG/ML CPJ IV NR (11:28)
[2018-12-22 12:35] VITALS: BP 128/84
[2018-12-22] MEDS ORDERED: CLINDAMYCIN 600 MG in DEXTROSE 5% WATER 50 ML IV SCH (13:00)
[2018-12-22] MEDS: CLINDAMYCIN 600MG PREMIX 50 ML IV SCH ×2 (13:00→21:37)
[2018-12-22] MEDS: HYDROMORPHONE HCL/PF 2MG/ML CPJ IV PRN ×3 (15:05→20:59)
[2018-12-22 16:44] VITALS: BP 138/97
[2018-12-22 20:00] VITALS: BP 125/91
[2018-12-22] MEDS: DEXTROSE 50% WATER 50ML SYRINGE IV PRN (20:57)
[2018-12-22] MEDS ORDERED: INSULIN GLARGINE UD 100 UNITS/ML SYR SUBCUT SCH ×2 (22:00→23:45)
[2018-12-23] VITALS (7 sets, daily range): BP systolic 103–154; BP diastolic 61–97
[2018-12-23] MEDS: HYDROMORPHONE HCL/PF 2MG/ML CPJ IV PRN ×10 (00:45→23:29)
[2018-12-23] MEDS: INSULIN GLARGINE UD 100 UNITS/ML SYR SUBCUT SCH ×2 (00:54→21:23)
[2018-12-23] MEDS: GABAPENTIN 300MG CAPSULE PO SCH ×3 (06:45→21:25)
[2018-12-23] MEDS: CLINDAMYCIN 600MG PREMIX 50 ML IV SCH ×4 (06:45→22:00)
[2018-12-23] MEDS: BLOOD SUGAR DIAGNOSTIC STRIP TEST SCH ×4 (06:52→21:26)
[2018-12-23] MEDS: INSULIN LISPRO 100 UNITS/ML SUBCUT SCH ×4 (07:00→21:22)
[2018-12-23 08:16] LABS: BASOPHILS % 0.8 % (0.0-2.0); EOSINOPHILS % 2.1 % (0.0-5.0); HEMOGLOBIN. 9.6 g/dL (12.0-16.0); LYMPHOCYTES % 45.1 % (20.0-50.0); MEAN CORPUSCULAR HEMOGLOBIN 24.3 pg (28.0-32.0); MEAN CORPUSCULAR VOLUME 76.5 fL (81.0-99.0); MONOCYTES % 8.7 % (2.0-8.0); NEUTROPHILS % 43.3 % (40.0-76.0); PLATELET 232 x1000/uL (130-400); RED BLOOD CELL COUNT 3.93 mill/uL (4.2-5.4); RED CELL DISTRIBUTION WIDTH 16.6 % (11.6-14.6)
[2018-12-23 08:40] LABS: CHLORIDE 102 mEq/L (98-107)
[2018-12-23] MEDS: DILTIAZEM HCL 120MG CAPSULE CD 24HR PO SCH ×2 (09:00→21:24)
[2018-12-23] MEDS: HYDROXYCHLOROQUINE SULFATE 200MG TABLET PO SCH ×2 (09:42→17:35)
[2018-12-23] MEDS: CELECOXIB 200MG CAPSULE PO SCH ×2 (09:42→17:35)
[2018-12-23] MEDS: ONDANSETRON HCL 4MG/2ML INJ IV PRN ×2 (10:40→17:52)
[2018-12-23] MEDS ORDERED: INSULIN LISPRO 100 UNITS/ML SUBCUT NR (18:30)
[2018-12-23] MEDS ORDERED: LORAZEPAM 2MG/ML CPJ IV PRN (23:15)
[2018-12-24] VITALS (7 sets, daily range): BP systolic 103–127; BP diastolic 61–83
[2018-12-24] MEDS: HYDROMORPHONE HCL/PF 2MG/ML CPJ IV PRN ×7 (02:23→21:07)
[2018-12-24] MEDS: GABAPENTIN 300MG CAPSULE PO SCH ×3 (05:20→21:13)
[2018-12-24] MEDS: CLINDAMYCIN 600MG PREMIX 50 ML IV SCH ×3 (05:25→13:36)
[2018-12-24] MEDS: BLOOD SUGAR DIAGNOSTIC STRIP TEST SCH ×4 (06:22→21:00)
[2018-12-24 06:35] LABS: CREATINE KINASE 178 IU/L (26-192)
[2018-12-24] MEDS: INSULIN LISPRO 100 UNITS/ML SUBCUT SCH ×4 (06:43→21:42)
[2018-12-24] MEDS: HYDROXYCHLOROQUINE SULFATE 200MG TABLET PO SCH ×2 (08:27→17:00)
[2018-12-24] MEDS: CELECOXIB 200MG CAPSULE PO SCH ×2 (08:27→08:30)
[2018-12-24] MEDS: DILTIAZEM HCL 120MG CAPSULE CD 24HR PO SCH ×2 (09:00→21:48)
[2018-12-24] MEDS: ONDANSETRON HCL 4MG/2ML INJ IV PRN (13:37)
[2018-12-24] MEDS ORDERED: INSULIN LISPRO 100 UNITS/ML SUBCUT NR (18:45)
[2018-12-24] MEDS: AMITRIPTYLINE 10MG TABLET PO SCH (21:00)
[2018-12-24] MEDS: INSULIN GLARGINE UD 100 UNITS/ML SYR SUBCUT SCH (21:41)
[2018-12-25] VITALS (9 sets, daily range): BP systolic 100–133; BP diastolic 55–89
[2018-12-25] MEDS: HYDROMORPHONE HCL/PF 2MG/ML CPJ IV PRN ×7 (01:08→23:04)
[2018-12-25] MEDS: GABAPENTIN 300MG CAPSULE PO SCH ×3 (05:14→21:53)
[2018-12-25] MEDS: CLINDAMYCIN 600MG PREMIX 50 ML IV SCH ×4 (06:00→21:54)
[2018-12-25] MEDS: BLOOD SUGAR DIAGNOSTIC STRIP TEST SCH ×4 (06:14→20:37)
[2018-12-25] MEDS: INSULIN LISPRO 100 UNITS/ML SUBCUT SCH ×7 (06:47→20:37)
[2018-12-25] MEDS: LIPASE/PROTEASE/AMYLASE 4,200/14,200/24,600 UNITS CAP DR PO SCH ×3 (07:40→18:51)
[2018-12-25] MEDS: HYDROXYCHLOROQUINE SULFATE 200MG TABLET PO SCH ×2 (09:00→18:51)
[2018-12-25] MEDS ORDERED: INSULIN GLARGINE UD 100 UNITS/ML SYR SUBCUT SCH (10:00)
[2018-12-25] MEDS: DILTIAZEM HCL 120MG CAPSULE CD 24HR PO SCH ×2 (10:12→20:32)
[2018-12-25] MEDS: CELECOXIB 200MG CAPSULE PO SCH ×2 (10:13→18:51)
[2018-12-25] MEDS: AMITRIPTYLINE 10MG TABLET PO SCH (20:37)
[2018-12-25] MEDS: INSULIN GLARGINE UD 100 UNITS/ML SYR SUBCUT SCH (21:52)
[2018-12-26] VITALS: BP 124/76
[2018-12-26] MEDS: HYDROMORPHONE HCL/PF 2MG/ML CPJ IV PRN ×3 (02:27→08:22)
[2018-12-26 04:00] VITALS: BP 122/70
[2018-12-26] MEDS: CLINDAMYCIN 600MG PREMIX 50 ML IV SCH (05:49)
[2018-12-26] MEDS: GABAPENTIN 300MG CAPSULE PO SCH (05:58)
[2018-12-26] MEDS: BLOOD SUGAR DIAGNOSTIC STRIP TEST SCH (06:00)
[2018-12-26] MEDS: INSULIN LISPRO 100 UNITS/ML SUBCUT SCH (06:13)
[2018-12-26] MEDS ORDERED: INSULIN LISPRO 100 UNITS/ML SUBCUT SCH (07:10)
[2018-12-26 08:00] VITALS: BP 106/74
[2018-12-26] MEDS: LIPASE/PROTEASE/AMYLASE 4,200/14,200/24,600 UNITS CAP DR PO SCH (08:18)
[2018-12-26] MEDS: CELECOXIB 200MG CAPSULE PO SCH (08:19)
[2018-12-26] MEDS: DILTIAZEM HCL 120MG CAPSULE CD 24HR PO SCH (08:21)
[2018-12-26] MEDS: HYDROXYCHLOROQUINE SULFATE 200MG TABLET PO SCH (08:33)
[2018-12-26] MEDS ORDERED: INSULIN GLARGINE UD 100 UNITS/ML SYR SUBCUT SCH ×2 (10:00)
[2018-12-26 11:34] VITALS: BP 106/74
[2018-12-26 12:00] VITALS: BP 117/63
== END 2018-12-26 12:20 | disposition home health service (06) | DRG 351 ==
LOC: ER 21:59 → EDBEDREQTM 12-17 05:45 → EDBEDREQ 12-17 05:45 → EDBEDREQSVC 12-17 05:45 → ENRESERV 12-17 08:38 → EDBEDREQ 12-17 08:56 → 6EST 12-17 09:08 → CVICU 12-20 12:54 → 8WST 12-20 15:52
PROVIDERS: ADMIT Internal Medicine; ATTEND Internal Medicine
PROC: 3E0233Z Introduction of Anti-inflammatory into Muscle, Percutaneous Approach (ICD-10-PCS; 2018-12-18)
PROC: 3E023BZ Introduction of Anesthetic Agent into Muscle, Percutaneous Approach (ICD-10-PCS; 2018-12-18)
PROC: 02HV33Z Insertion of Infusion Device into Superior Vena Cava, Percutaneous Approach (ICD-10-PCS; principal; 2018-12-19)
PROC: B5181ZA Fluoroscopy of Superior Vena Cava using Low Osmolar Contrast, Guidance (ICD-10-PCS; 2018-12-19)
PROC: B548ZZA Ultrasonography of Superior Vena Cava, Guidance (ICD-10-PCS; 2018-12-19)
DX: M60.861 Other myositis, right lower leg (principal); E10.649 Type 1 diabetes mellitus with hypoglycemia without coma; E87.2 Acidosis; I95.9 Hypotension, unspecified; K31.84 Gastroparesis; E10.43 Type 1 diabetes mellitus with diabetic autonomic (poly)neuropathy; E10.65 Type 1 diabetes mellitus with hyperglycemia; M77.9 Enthesopathy, unspecified; L03.115 Cellulitis of right lower limb; D64.9 Anemia, unspecified; I10 Essential (primary) hypertension; I73.00 Raynaud's syndrome without gangrene; M13.0 Polyarthritis, unspecified; Z79.4 Long term (current) use of insulin; E78.00 Pure hypercholesterolemia, unspecified; F17.200 Nicotine dependence, unspecified, uncomplicated; G89.4 Chronic pain syndrome; I48.91 Unspecified atrial fibrillation; J44.9 Chronic obstructive pulmonary disease, unspecified; Z79.891 Long term (current) use of opiate analgesic; Z82.49 Family history of ischemic heart disease and other diseases of the circulatory system; Z83.3 Family history of diabetes mellitus; Z98.891 History of uterine scar from previous surgery; Z88.5 Allergy status to narcotic agent; Z88.8 Allergy status to other drugs, medicaments and biological substances; Z88.0 Allergy status to penicillin; Z88.1 Allergy status to other antibiotic agents; Z71.6 Tobacco abuse counseling; Z79.84 Long term (current) use of oral hypoglycemic drugs; Z79.899 Other long term (current) drug therapy
CPT/HCPCS: 36415; 36569; 36573; 73700; 73718; 80048; 80061; 82010; 82085; 82164; 82550; 82955; 82962; 83036; 83605; 83735; 84100; 84145; 84443; 85041; 85379; 85651; 86140; 86225; 86235; 86256; 86431; 86705; 86709; 86803; 87340; 87389; 93005; 93922; 93971; 96374; 96375; 97162; 97165; 97530; 97535; 99291; C1725; C1893; J1030; J1170; J1200; J1815; J1885; J2060; J2270; J2310; J2405; J3370; J3490; J7030; J7040; J7050; J7060; Q0163

== ENCOUNTER 2019-04-28 21:59 | Inpatient (IN) | payer MEDICAID ==
[~2019-04-28] VITALS: Ht 154.9 cm; Wt 65.3 kg
[~2019-04-28 21:59] MED LIST changes: +ERYT-113 MT; +INSLIS SUBCUT; +LISI40TA4 PO; +PANT40TA4 PO
[2019-04-28] MEDS ORDERED: FAMOTIDINE 20MG/2ML VIAL IV STA (23:36)
[2019-04-28] MEDS ORDERED: ONDANSETRON HCL 4MG/2ML INJ IV STA (23:36)
[2019-04-28] MEDS ORDERED: SODIUM CHLORIDE 0.9% 1,000 ML IV ONE ×2 (23:36)
[2019-04-28] MEDS ORDERED: INSULIN REGULAR (HUMULIN R) 300UNITS/3ML SUBCUT ONE (23:45)
[2019-04-29 01:15] LABS: BASOPHILS % 0.6 % (0.0-2.0); EOSINOPHILS % 0.2 % (0.0-5.0); HEMATOCRIT. 33.4 % (36.0-48.0); HEMOGLOBIN. 10.4 g/dL (12.0-16.0); LYMPHOCYTES % 41.4 % (20.0-50.0); MEAN CORPUSCULAR HEMOGLOBIN 25.1 pg (28.0-32.0); MEAN CORPUSCULAR VOLUME 80.7 fL (81.0-99.0); MEAN PLATELET VOLUME 7.3 fl (7.4-10.4); MONOCYTES % 9.1 % (2.0-8.0); NEUTROPHILS % 48.7 % (40.0-76.0); PLATELET 370 x1000/uL (130-400); RED BLOOD CELL COUNT 4.14 mill/uL (4.2-5.4); RED CELL DISTRIBUTION WIDTH 17.2 % (11.6-14.6)
[2019-04-29 01:22] LABS: HCG SCREEN NEGATIVE
[2019-04-29 01:23] LABS: CHLORIDE 94 mEq/L (98-107)
[2019-04-29 02:32] LABS: *AMPHETAMINES SCREEN URINE NEGATIVE (NEGATIVE); *BARBITURATES SCREEN URINE NEGATIVE (NEGATIVE)
[2019-04-29 02:33] LABS: *BENZODIAZEPINES SCREEN URINE NEGATIVE (NEGATIVE); *COCAINE SCREEN URINE NEGATIVE (NEGATIVE); CANNABINOID URINE SCREEN NEGATIVE (NEGATIVE); CLARITY URINE CLEAR (CLEAR); COLOR URINE YELLOW (YELLOW); KETONES URINE 1+ (NEGATIVE); LEUKOCYTE ESTERASE URINE NEGATIVE (NEGATIVE); METHADONE URINE SCREEN NEGATIVE (NEGATIVE); NITRITE URINE NEGATIVE (NEGATIVE); OCCULT BLOOD URINE NEGATIVE (NEGATIVE); OPIATES URINE SCREEN NEGATIVE (NEGATIVE); PHENCYCLIDINE URINE SCREEN NEGATIVE (NEGATIVE); PROTEIN URINE TRACE (NEGATIVE); UROBILINOGEN URINE 0.2 E.U./dL (0.2-1.0)
[2019-04-29] MEDS ORDERED: LIDOCAINE HCL 2% JELLY 5ML ONE (03:32)
[2019-04-29] MEDS ORDERED: ONDANSETRON 4MG ODT ONE (03:51)
[2019-04-29] MEDS ORDERED: LIDOCAINE HCL 4% CREAM 76GM TUBE TP STA (03:54)
[2019-04-29] MEDS ORDERED: ONDANSETRON HCL 4MG/2ML INJ IV PRN (07:15)
[2019-04-29] MEDS ORDERED: IPRATROPIUM/ALBUTEROL 0.5-3(2.5)MG/3ML NEB INH PRN (07:15)
[2019-04-29] MEDS ORDERED: ACETAMINOPHEN 325MG TABLET PO PRN (07:15)
[2019-04-29] MEDS ORDERED: DOCUSATE SODIUM 100MG CAPSULE PO PRN (07:15)
[2019-04-29] MEDS ORDERED: CLONIDINE 0.1MG TABLET PO PRN (07:15)
[2019-04-29 08:50] VITALS: BP 140/90
[2019-04-29 09:00] VITALS: BP 140/90
[2019-04-29] MEDS ORDERED: DEXTROSE 50% WATER 50ML SYRINGE IV PRN (09:15)
[2019-04-29 09:58] VITALS: BP 140/90
[2019-04-29] MEDS ORDERED: INSULIN GLARGINE UD 100 UNITS/ML SYR SUBCUT SCH ×2 (10:00→22:00)
[2019-04-29] MEDS ORDERED: LIDOCAINE HCL 1% 20ML VIAL (Pyxis) INJ ONE (10:12)
[2019-04-29] MEDS ORDERED: SODIUM BICARBONATE 4% (2.4MEQ) 5ML VIAL IV ONE (10:37)
[2019-04-29] MEDS ORDERED: HYDROCODONE/ACETAMINOPHEN 5/325MG TABLET PO PRN (10:45)
[2019-04-29] MEDS: BLOOD SUGAR DIAGNOSTIC STRIP TEST SCH ×3 (12:33→21:15)
[2019-04-29] MEDS: INSULIN LISPRO 100 UNITS/ML SUBCUT SCH ×4 (13:00→21:00)
[2019-04-29] MEDS: LISINOPRIL 40MG TABLET PO SCH (13:04)
[2019-04-29] MEDS: DILTIAZEM HCL 120MG CAPSULE CD 24HR PO SCH (13:04)
[2019-04-29 13:05] VITALS: BP 180/116
[2019-04-29] MEDS: GABAPENTIN 300MG CAPSULE PO SCH ×2 (14:39→21:40)
[2019-04-29] MEDS: ERYTHROMYCIN 250MG CAPSULE DR PO SCH ×2 (14:39→21:39)
[2019-04-29 16:18] VITALS: BP 114/68
[2019-04-29 20:00] VITALS: BP 107/74
[2019-04-29 22:31] LABS: INR 0.9; PROTHROMBIN TIME 9.2 sec (9.6-11.0)
[2019-04-29] MEDS: BACLOFEN 10MG TABLET PO PRN (22:44)
[2019-04-30] MEDS: GABAPENTIN 300MG CAPSULE PO SCH (04:52)
[2019-04-30] MEDS: ERYTHROMYCIN 250MG CAPSULE DR PO SCH (05:20)
[2019-04-30] MEDS: BLOOD SUGAR DIAGNOSTIC STRIP TEST SCH ×2 (05:51→12:14)
[2019-04-30] MEDS: INSULIN LISPRO 100 UNITS/ML SUBCUT SCH ×3 (05:51→12:36)
[2019-04-30] MEDS ORDERED: LORAZEPAM 0.5MG TABLET PO PRN (06:30)
[2019-04-30] MEDS ORDERED: PANTOPRAZOLE 40MG DR TABLET PO SCH (06:45)
[2019-04-30 07:55] LABS: BASOPHILS % 0.6 % (0.0-2.0); EOSINOPHILS % 0.4 % (0.0-5.0); HEMATOCRIT. 30.2 % (36.0-48.0); HEMOGLOBIN. 9.6 g/dL (12.0-16.0); LYMPHOCYTES % 36.3 % (20.0-50.0); MEAN CORPUSCULAR HEMOGLOBIN 25.1 pg (28.0-32.0); MEAN PLATELET VOLUME 6.8 fl (7.4-10.4); MONOCYTES % 6.3 % (2.0-8.0); NEUTROPHILS % 56.4 % (40.0-76.0); PLATELET 320 x1000/uL (130-400); RED BLOOD CELL COUNT 3.82 mill/uL (4.2-5.4); RED CELL DISTRIBUTION WIDTH 17.1 % (11.6-14.6)
[2019-04-30 08:00] VITALS: BP 101/64
[2019-04-30 08:08] LABS: CHLORIDE 108 mEq/L (98-107)
[2019-04-30] MEDS: LISINOPRIL 40MG TABLET PO SCH (09:00)
[2019-04-30] MEDS: DILTIAZEM HCL 120MG CAPSULE CD 24HR PO SCH (09:00)
[2019-04-30] MEDS: BACLOFEN 10MG TABLET PO PRN (10:03)
[2019-04-30 12:00] VITALS: BP 126/98
[2019-04-30] MEDS ORDERED: POTASSIUM CHLORIDE 20MEQ TABLET SR PO NR (12:30)
[2019-04-30] MEDS ORDERED: INSULIN GLARGINE UD 100 UNITS/ML SYR SUBCUT SCH (22:00)
== END 2019-04-30 13:35 | disposition left against medical advice (07) | DRG 420 ==
LOC: ER 23:00 → 5WST 04-29 01:57 → EDBEDREQ 04-29 02:02 → EDBEDREQTM 04-29 02:02 → ENRESERV 04-29 07:04
PROVIDERS: ADMIT Internal Medicine; ATTEND Internal Medicine
PROC: 02HV33Z Insertion of Infusion Device into Superior Vena Cava, Percutaneous Approach (ICD-10-PCS; principal; 2019-04-29)
PROC: B5181ZA Fluoroscopy of Superior Vena Cava using Low Osmolar Contrast, Guidance (ICD-10-PCS; 2019-04-29)
PROC: B548ZZA Ultrasonography of Superior Vena Cava, Guidance (ICD-10-PCS; 2019-04-29)
DX: E11.10 Type 2 diabetes mellitus with ketoacidosis without coma (principal); F11.20 Opioid dependence, uncomplicated; I48.91 Unspecified atrial fibrillation; K31.84 Gastroparesis; R16.0 Hepatomegaly, not elsewhere classified; E11.43 Type 2 diabetes mellitus with diabetic autonomic (poly)neuropathy; D50.9 Iron deficiency anemia, unspecified; F17.200 Nicotine dependence, unspecified, uncomplicated; D72.829 Elevated white blood cell count, unspecified; G89.4 Chronic pain syndrome; Z53.21 Procedure and treatment not carried out due to patient leaving prior to being seen by health care provider; N94.89 Other specified conditions associated with female genital organs and menstrual cycle; R31.9 Hematuria, unspecified; N93.9 Abnormal uterine and vaginal bleeding, unspecified; I10 Essential (primary) hypertension; J45.909 Unspecified asthma, uncomplicated; N94.6 Dysmenorrhea, unspecified; Z79.4 Long term (current) use of insulin; Z71.6 Tobacco abuse counseling; Z79.899 Other long term (current) drug therapy; Z82.49 Family history of ischemic heart disease and other diseases of the circulatory system; Z83.3 Family history of diabetes mellitus; Z98.891 History of uterine scar from previous surgery; Z88.1 Allergy status to other antibiotic agents; Z88.0 Allergy status to penicillin; Z88.8 Allergy status to other drugs, medicaments and biological substances
CPT/HCPCS: 36415; 36573; 71045; 80048; 80305; 81003; 82010; 82962; 83605; 84703; 96374; 96375; 99285; C1725; J1815; J2405; J3490; J7030; Q0162

== ENCOUNTER 2019-06-14 11:07 | Emergency (ER) | payer MEDICAID ==
[~2019-06-14] VITALS: Ht 162.6 cm; Wt 52.0 kg
[2019-06-14] MEDS ORDERED: ACETAMINOPHEN WITH CODEINE 300/30MG TABLET PO STA (11:26)
[2019-06-14] MEDS: SODIUM CHLORIDE 0.9% 1,000 ML IV ONE ×2 (11:26→11:48)
[2019-06-14 12:32] LABS: BASOPHILS % 0.8 % (0.0-2.0); EOSINOPHILS % 0.6 % (0.0-5.0); HEMOGLOBIN. 8.8 g/dL (12.0-16.0); LYMPHOCYTES % 39.6 % (20.0-50.0); MEAN CORPUSCULAR HEMOGLOBIN 23.1 pg (28.0-32.0); MEAN CORPUSCULAR VOLUME 75.9 fL (81.0-99.0); MEAN PLATELET VOLUME 6.9 fl (7.4-10.4); MONOCYTES % 5.8 % (2.0-8.0); NEUTROPHILS % 53.2 % (40.0-76.0); PLATELET 297 x1000/uL (130-400); RED BLOOD CELL COUNT 3.82 mill/uL (4.2-5.4); RED CELL DISTRIBUTION WIDTH 17.7 % (11.6-14.6)
[2019-06-14 12:41] LABS: CHLORIDE 104 mEq/L (98-107)
[2019-06-14 12:46] LABS: INR 0.9; PROTHROMBIN TIME 9.1 sec (9.6-11.0)
[2019-06-14 12:50] LABS: CREATINE KINASE 77 IU/L (26-192)
[2019-06-14 13:29] LABS: CLARITY URINE CLEAR (CLEAR); COLOR URINE YELLOW (YELLOW); KETONES URINE NEGATIVE (NEGATIVE); LEUKOCYTE ESTERASE URINE NEGATIVE (NEGATIVE); NITRITE URINE NEGATIVE (NEGATIVE); OCCULT BLOOD URINE NEGATIVE (NEGATIVE); PH URINE 6.5 (4.5-8.0); PROTEIN URINE TRACE (NEGATIVE); UROBILINOGEN URINE 0.2 E.U./dL (0.2-1.0)
[2019-06-14] MEDS ORDERED: INSULIN REGULAR (HUMULIN R) 300UNITS/3ML SUBCUT ONE (14:45)
[2019-06-14] MEDS ORDERED: LEVOFLOXACIN 500MG TABLET PO ONE (16:15)
[2019-06-14] MEDS ORDERED: ACETAMINOPHEN WITH CODEINE 300/30MG TABLET PO ONE (17:45)
[2019-06-14 17:57] VITALS: BP 140/105
== END 2019-06-14 18:06 | disposition home or self-care (01) ==
LOC: ER 11:08
DX: E11.65 Type 2 diabetes mellitus with hyperglycemia (principal); M60.861 Other myositis, right lower leg; I10 Essential (primary) hypertension; J45.909 Unspecified asthma, uncomplicated; Z98.890 Other specified postprocedural states; Z88.0 Allergy status to penicillin; Z79.4 Long term (current) use of insulin; Z88.6 Allergy status to analgesic agent
CPT/HCPCS: 36415; 71045; 73700; 80053; 81003; 81025; 82550; 82962; 85025; 85610; 87040; 93005; 96372; 99284; J1815; J7030

== ENCOUNTER 2019-06-16 13:29 | Inpatient (IN) | payer MEDICAID ==
[~2019-06-16] VITALS: Ht 152.4 cm; Wt 67.6 kg
[2019-06-16] MEDS ORDERED: ONDANSETRON HCL 4MG/2ML INJ IV STA (13:57)
[2019-06-16] MEDS ORDERED: SODIUM CHLORIDE 0.9% 1,000 ML IV ONE (13:57)
[2019-06-16 14:48] LABS: CLARITY URINE CLEAR (CLEAR); COLOR URINE YELLOW (YELLOW); KETONES URINE 1+ (NEGATIVE); LEUKOCYTE ESTERASE URINE NEGATIVE (NEGATIVE); NITRITE URINE NEGATIVE (NEGATIVE); OCCULT BLOOD URINE NEGATIVE (NEGATIVE); PH URINE 7.5 (4.5-8.0); PROTEIN URINE NEGATIVE (NEGATIVE); SPECIFIC GRAVITY URINE 1.023 (1.005-1.030); UROBILINOGEN URINE 0.2 E.U./dL (0.2-1.0)
[2019-06-16 15:06] LABS: BG BASE EXCESS -0.9 mmol/L (-2.0-2.0); BG CARBOXYHEMOGLOBIN 2.1 % (0.5-1.5); BG DEOXYHEMOGLOBIN 3.9 % (0.0-5.0); BG FRACTION INSPIRED OXYGEN 21; BG HCO3 ACT 23.8 mmol/L (22.0-26.0); BG METHEMOGLOBIN 0.1 % (0.0-1.5); BG OXYHEMOGLOBIN 93.9 % (94.0-97.0); BG PCO2 39.5 mmHg (35.0-45.0); BG PH 7.397 (7.350-7.450); BG PO2 88.6 mmHg (75.0-100.0); BG SAMPLE SITE LEFT RADIAL; BG TOTAL HEMOGLOBIN 11.4 g/dL (12.0-18.0); BG VENT MODE ROOM AIR
[2019-06-16] MEDS ORDERED: DIPHENHYDRAMINE 12.5MG/5ML UDC PO NR (15:15)
[2019-06-16 15:43] LABS: BASOPHILS % 0.4 % (0.0-2.0); EOSINOPHILS % 0.3 % (0.0-5.0); HEMATOCRIT. 32.7 % (36.0-48.0); HEMOGLOBIN. 9.7 g/dL (12.0-16.0); MEAN CORPUSCULAR HEMOGLOBIN 23.3 pg (28.0-32.0); MEAN CORPUSCULAR VOLUME 78.5 fL (81.0-99.0); MEAN PLATELET VOLUME 7.7 fl (7.4-10.4); MONOCYTES % 3.3 % (2.0-8.0); PLATELET 330 x1000/uL (130-400); RED BLOOD CELL COUNT 4.16 mill/uL (4.2-5.4); RED CELL DISTRIBUTION WIDTH 18.2 % (11.6-14.6)
[2019-06-16 15:49] LABS: CHLORIDE 89 mEq/L (98-107)
[2019-06-16 15:58] LABS: HCG SCREEN NEGATIVE
[2019-06-16] MEDS ORDERED: ACETAMINOPHEN WITH CODEINE 300/30MG TABLET PO ONE (16:00)
[2019-06-16] MEDS ORDERED: MORPHINE SULFATE 4 MG/ML CPJ (NOT FOR IM USE) IV ONE (16:15)
[2019-06-16] MEDS ORDERED: CALCIUM CHLORIDE 1,000 MG in DEXT 5% WATER 100 ML IV NR (16:30)
[2019-06-16] MEDS ORDERED: SODIUM CHLORIDE 0.9% 1,950 ML IV SCH (16:30)
[2019-06-16] MEDS ORDERED: DEXTROSE 50% WATER 50ML SYRINGE IV NR (16:30)
[2019-06-16] MEDS ORDERED: INSULIN REGULAR (HUMULIN R) 300UNITS/3ML IV ONE (16:30)
[2019-06-16] MEDS ORDERED: INSULIN REGULAR (HUMULIN R) 300UNITS/3ML IV NR ×2 (16:30→21:53)
[2019-06-16] MEDS ORDERED: SODIUM BICARBONATE 8.4% 1 MEQ/ML 50ML SYR IV NR (16:30)
[2019-06-16] MEDS ORDERED: SODIUM CHLORIDE 0.9% 1000ML BAG (SEPSIS BOLUS) IV ONE (16:30)
[2019-06-16] MEDS ORDERED: CALCIUM GLUCONATE 100MG/ML 10ML VIAL IV ONE (16:45)
[2019-06-16] MEDS ORDERED: VANCOMYCIN 1 G PREMIX 200 ML IV ONE (18:30)
[2019-06-16] MEDS ORDERED: MEROPENEM 1,000 MG in SODIUM CHLORIDE 0.9% 100 ML IV SCH (18:30)
[2019-06-16] MEDS ORDERED: MORPHINE SULFATE 4 MG/ML CPJ (NOT FOR IM USE) IV STA (18:46)
[2019-06-16] MEDS ORDERED: ONDANSETRON HCL 4MG/2ML INJ IV PRN (20:00)
[2019-06-16] MEDS ORDERED: DOCUSATE SODIUM 100MG CAPSULE PO PRN (20:00)
[2019-06-16] MEDS ORDERED: IPRATROPIUM/ALBUTEROL 0.5-3(2.5)MG/3ML NEB HHN PRN (20:00)
[2019-06-16] MEDS ORDERED: LORAZEPAM 0.5MG TABLET PO PRN (20:00)
[2019-06-16] MEDS ORDERED: HYDROCODONE/ACETAMINOPHEN 5/325MG TABLET PO PRN (20:00)
[2019-06-16] MEDS ORDERED: ACETAMINOPHEN 325MG TABLET PO PRN (20:00)
[2019-06-16] MEDS ORDERED: INSULIN GLARGINE UD 100 UNITS/ML SYR SUBCUT SCH (21:54)
[2019-06-16] MEDS: INSULIN GLARGINE UD 100 UNITS/ML SYR SUBCUT SCH (22:27)
[2019-06-17] MEDS: MORPHINE SULFATE 4 MG/ML CPJ (NOT FOR IM USE) IV PRN ×5 (00:01→21:46)
[2019-06-17] MEDS: SODIUM CHLORIDE 0.9% 1,000 ML IV SCH ×3 (01:48→17:28)
[2019-06-17 04:30] VITALS: BP 125/93
[2019-06-17] MEDS ORDERED: DEXTROSE 50% WATER 50ML SYRINGE IV PRN (06:45)
[2019-06-17] MEDS: BLOOD SUGAR DIAGNOSTIC STRIP TEST SCH ×4 (07:31→20:57)
[2019-06-17] MEDS: INSULIN LISPRO 100 UNITS/ML SUBCUT SCH ×4 (07:35→20:57)
[2019-06-17 08:00] VITALS: BP 130/84
[2019-06-17 10:42] LABS: *COCAINE SCREEN URINE NEGATIVE (NEGATIVE); CANNABINOID URINE SCREEN NEGATIVE (NEGATIVE); METHADONE URINE SCREEN NEGATIVE (NEGATIVE); OPIATES URINE SCREEN NEGATIVE (NEGATIVE); PHENCYCLIDINE URINE SCREEN NEGATIVE (NEGATIVE)
[2019-06-17 10:43] LABS: *AMPHETAMINES SCREEN URINE NEGATIVE (NEGATIVE); *BARBITURATES SCREEN URINE NEGATIVE (NEGATIVE); *BENZODIAZEPINES SCREEN URINE NEGATIVE (NEGATIVE)
[2019-06-17 12:00] VITALS: BP 143/101
[2019-06-17] MEDS: DIPHENHYDRAMINE 50MG/ML VIAL IV PRN ×3 (12:23→21:50)
[2019-06-17] MEDS: HYDROMORPHONE HCL/PF 2MG/ML CPJ IV PRN ×2 (13:59→18:17)
[2019-06-17] MEDS: INSULIN GLARGINE UD 100 UNITS/ML SYR SUBCUT SCH (13:59)
[2019-06-17 15:03] LABS: BASOPHILS % 1.5 % (0.0-2.0); EOSINOPHILS % 2.6 % (0.0-5.0); HEMATOCRIT. 26.3 % (36.0-48.0); HEMOGLOBIN. 8.3 g/dL (12.0-16.0); LYMPHOCYTES % 46.7 % (20.0-50.0); MEAN CORPUSCULAR HEMOGLOBIN 23.1 pg (28.0-32.0); MEAN PLATELET VOLUME 7.4 fl (7.4-10.4); MONOCYTES % 6.2 % (2.0-8.0); PLATELET 272 x1000/uL (130-400); RED BLOOD CELL COUNT 3.57 mill/uL (4.2-5.4); RED CELL DISTRIBUTION WIDTH 18.3 % (11.6-14.6)
[2019-06-17 15:06] LABS: MEAN CORPUSCULAR VOLUME 75.7 fL (81.0-99.0)
[2019-06-17] MEDS: DOXYCYCLINE 100 MG in DEXT 5% WATER 100 ML IV SCH (15:19)
[2019-06-17 15:48] LABS: CHLORIDE 106 mEq/L (98-107)
[2019-06-17 15:58] LABS: CREATINE KINASE 43 IU/L (26-192)
[2019-06-17 16:00] VITALS: BP 141/103
[2019-06-17] MEDS: RIVAROXABAN 10 MG TABLET PO SCH (17:27)
[2019-06-17 20:00] VITALS: BP 103/70
[2019-06-18] VITALS: BP 144/62
[2019-06-18] MEDS: CLINDAMYCIN 900 MG in DEXTROSE 5% WATER 50 ML IV SCH ×4 (00:37→23:22)
[2019-06-18] MEDS: HYDROMORPHONE HCL/PF 2MG/ML CPJ IV PRN ×5 (01:33→21:34)
[2019-06-18] MEDS: DOXYCYCLINE 100 MG in DEXT 5% WATER 100 ML IV SCH ×2 (03:15→15:10)
[2019-06-18] MEDS: INSULIN GLARGINE UD 100 UNITS/ML SYR SUBCUT SCH ×3 (03:19→23:24)
[2019-06-18] MEDS: SODIUM CHLORIDE 0.9% 1,000 ML IV SCH ×2 (03:29→14:26)
[2019-06-18 04:00] VITALS: BP 148/64
[2019-06-18] MEDS: DIPHENHYDRAMINE 50MG/ML VIAL IV PRN ×4 (04:05→18:25)
[2019-06-18] MEDS: MORPHINE SULFATE 4 MG/ML CPJ (NOT FOR IM USE) IV PRN ×5 (04:11→23:41)
[2019-06-18] MEDS: BLOOD SUGAR DIAGNOSTIC STRIP TEST SCH ×4 (06:20→20:51)
[2019-06-18] MEDS: INSULIN LISPRO 100 UNITS/ML SUBCUT SCH ×4 (06:27→21:35)
[2019-06-18 06:44] LABS: BASOPHILS % 0.8 % (0.0-2.0); EOSINOPHILS % 2.6 % (0.0-5.0); HEMATOCRIT. 25.5 % (36.0-48.0); LYMPHOCYTES % 44.9 % (20.0-50.0); MEAN CORPUSCULAR HEMOGLOBIN 23.3 pg (28.0-32.0); MEAN CORPUSCULAR VOLUME 74.4 fL (81.0-99.0); MEAN PLATELET VOLUME 7.1 fl (7.4-10.4); NEUTROPHILS % 45.7 % (40.0-76.0); PLATELET 298 x1000/uL (130-400); RED BLOOD CELL COUNT 3.42 mill/uL (4.2-5.4); RED CELL DISTRIBUTION WIDTH 18.1 % (11.6-14.6)
[2019-06-18 07:01] LABS: CHLORIDE 104 mEq/L (98-107)
[2019-06-18 08:00] VITALS: BP 127/83
[2019-06-18 12:00] VITALS: BP 117/86
[2019-06-18 16:00] VITALS: BP 115/78
[2019-06-18] MEDS: RIVAROXABAN 10 MG TABLET PO SCH (16:40)
[2019-06-18 20:00] VITALS: BP 118/74
[2019-06-19] VITALS: BP 118/82
[2019-06-19] MEDS: DIPHENHYDRAMINE 50MG/ML VIAL IV PRN ×4 (00:37→20:22)
[2019-06-19] MEDS: HYDROMORPHONE HCL/PF 2MG/ML CPJ IV PRN ×5 (02:37→22:03)
[2019-06-19] MEDS: DOXYCYCLINE 100 MG in DEXT 5% WATER 100 ML IV SCH ×2 (02:42→15:33)
[2019-06-19] MEDS: SODIUM CHLORIDE 0.9% 1,000 ML IV SCH ×3 (02:42→17:29)
[2019-06-19 04:00] VITALS: BP 114/78
[2019-06-19] MEDS: MORPHINE SULFATE 4 MG/ML CPJ (NOT FOR IM USE) IV PRN ×4 (04:13→19:41)
[2019-06-19] MEDS: CLINDAMYCIN 900 MG in DEXTROSE 5% WATER 50 ML IV SCH ×3 (05:14→21:02)
[2019-06-19] MEDS: INSULIN LISPRO 100 UNITS/ML SUBCUT SCH ×4 (06:59→20:55)
[2019-06-19] MEDS: BLOOD SUGAR DIAGNOSTIC STRIP TEST SCH ×4 (06:59→20:55)
[2019-06-19 07:43] LABS: CHLORIDE 108 mEq/L (98-107)
[2019-06-19 07:56] VITALS: BP 134/87
[2019-06-19 08:23] LABS: BASOPHILS % 1.1 % (0.0-2.0); EOSINOPHILS % 3.9 % (0.0-5.0); HEMATOCRIT. 24.6 % (36.0-48.0); HEMOGLOBIN. 7.6 g/dL (12.0-16.0); LYMPHOCYTES % 50.5 % (20.0-50.0); MEAN CORPUSCULAR HEMOGLOBIN 23.2 pg (28.0-32.0); MEAN CORPUSCULAR VOLUME 75.3 fL (81.0-99.0); NEUTROPHILS % 35.5 % (40.0-76.0); RED BLOOD CELL COUNT 3.27 mill/uL (4.2-5.4); RED CELL DISTRIBUTION WIDTH 18.1 % (11.6-14.6)
[2019-06-19] MEDS: INSULIN GLARGINE UD 100 UNITS/ML SYR SUBCUT SCH ×2 (09:23→21:03)
[2019-06-19 10:36] LABS: PLATELET 250 x1000/uL (130-400)
[2019-06-19 12:00] VITALS: BP 111/66
[2019-06-19 16:00] VITALS: BP 130/80
[2019-06-19] MEDS: RIVAROXABAN 10 MG TABLET PO SCH (17:26)
[2019-06-19 20:00] VITALS: BP 141/101
[2019-06-19] MEDS: CLONIDINE 0.1MG TABLET PO PRN (21:02)
[2019-06-20] VITALS: BP 134/92
[2019-06-20] MEDS: MORPHINE SULFATE 4 MG/ML CPJ (NOT FOR IM USE) IV PRN (00:40)
[2019-06-20] MEDS: DIPHENHYDRAMINE 50MG/ML VIAL IV PRN (01:31)
[2019-06-20] MEDS: DOXYCYCLINE 100 MG in DEXT 5% WATER 100 ML IV SCH ×2 (03:36→15:00)
[2019-06-20] MEDS: SODIUM CHLORIDE 0.9% 1,000 ML IV SCH ×3 (03:36→23:00)
[2019-06-20 04:00] VITALS: BP 155/106
[2019-06-20] MEDS: CLONIDINE 0.1MG TABLET PO PRN (04:46)
[2019-06-20] MEDS: CLINDAMYCIN 900 MG in DEXTROSE 5% WATER 50 ML IV SCH ×3 (06:24→21:24)
[2019-06-20] MEDS: BLOOD SUGAR DIAGNOSTIC STRIP TEST SCH ×4 (06:25→20:12)
[2019-06-20] MEDS: INSULIN LISPRO 100 UNITS/ML SUBCUT SCH ×4 (06:25→20:25)
[2019-06-20 08:00] VITALS: BP 117/86
[2019-06-20] MEDS: INSULIN GLARGINE UD 100 UNITS/ML SYR SUBCUT SCH ×2 (11:34→22:38)
[2019-06-20 12:00] VITALS: BP 137/95
[2019-06-20 12:01] LABS: BASOPHILS % 0.5 % (0.0-2.0); EOSINOPHILS % 3.4 % (0.0-5.0); HEMATOCRIT. 28.1 % (36.0-48.0); HEMOGLOBIN. 8.7 g/dL (12.0-16.0); LYMPHOCYTES % 31.4 % (20.0-50.0); MEAN CORPUSCULAR VOLUME 74.6 fL (81.0-99.0); MEAN PLATELET VOLUME 6.8 fl (7.4-10.4); MONOCYTES % 7.9 % (2.0-8.0); NEUTROPHILS % 56.8 % (40.0-76.0); PLATELET 270 x1000/uL (130-400); RED BLOOD CELL COUNT 3.76 mill/uL (4.2-5.4); RED CELL DISTRIBUTION WIDTH 18.1 % (11.6-14.6)
[2019-06-20 12:25] LABS: CHLORIDE 110 mEq/L (98-107)
[2019-06-20 16:00] VITALS: BP 160/102
[2019-06-20] MEDS: RIVAROXABAN 10 MG TABLET PO SCH ×2 (17:00→17:48)
[2019-06-20] MEDS: MORPHINE SULFATE 10MG/5ML ORAL SOLN UDC PO PRN ×2 (17:58→22:35)
[2019-06-20 20:00] VITALS: BP 159/107
[2019-06-20] MEDS: DIPHENHYDRAMINE 25MG CAPSULE PO PRN (23:25)
[2019-06-21] VITALS: BP 130/85
[2019-06-21] MEDS: DOXYCYCLINE 100 MG in DEXT 5% WATER 100 ML IV SCH (02:03)
[2019-06-21] MEDS: CLINDAMYCIN 900 MG in DEXTROSE 5% WATER 50 ML IV SCH (05:01)
[2019-06-21] MEDS: MORPHINE SULFATE 10MG/5ML ORAL SOLN UDC PO PRN ×2 (05:47→09:58)
[2019-06-21] MEDS: BLOOD SUGAR DIAGNOSTIC STRIP TEST SCH ×4 (06:00→21:13)
[2019-06-21] MEDS: INSULIN LISPRO 100 UNITS/ML SUBCUT SCH ×4 (06:18→21:13)
[2019-06-21 07:40] LABS: BASOPHILS % 0.6 % (0.0-2.0); HEMATOCRIT. 26.9 % (36.0-48.0); HEMOGLOBIN. 8.4 g/dL (12.0-16.0); MEAN CORPUSCULAR VOLUME 73.9 fL (81.0-99.0); MONOCYTES % 7.9 % (2.0-8.0); NEUTROPHILS % 46.5 % (40.0-76.0); PLATELET 271 x1000/uL (130-400); RED BLOOD CELL COUNT 3.65 mill/uL (4.2-5.4)
[2019-06-21 08:00] VITALS: BP 135/89
[2019-06-21 08:06] LABS: CHLORIDE 106 mEq/L (98-107)
[2019-06-21] MEDS: SODIUM CHLORIDE 0.9% 1,000 ML IV SCH ×2 (09:16→17:25)
[2019-06-21] MEDS: DIPHENHYDRAMINE 25MG CAPSULE PO PRN (09:22)
[2019-06-21] MEDS: INSULIN GLARGINE UD 100 UNITS/ML SYR SUBCUT SCH (09:22)
[2019-06-21] MEDS ORDERED: ONDANSETRON 4MG ODT PO PRN (10:45)
[2019-06-21] MEDS ORDERED: DOXYCYCLINE HYCLATE 100MG CAPSULE PO SCH (11:00)
[2019-06-21 12:00] VITALS: BP 130/84
[2019-06-21] MEDS: CLINDAMYCIN HCL 150MG CAPSULE PO SCH ×3 (12:13→23:09)
[2019-06-21] MEDS: HYDROMORPHONE HCL 2MG TABLET PO PRN ×2 (13:17→19:22)
[2019-06-21 16:00] VITALS: BP 150/104
[2019-06-21] MEDS: RIVAROXABAN 10 MG TABLET PO SCH (16:36)
[2019-06-21] MEDS: CLONIDINE 0.1MG TABLET PO PRN (16:37)
[2019-06-21 20:00] VITALS: BP 141/102
[2019-06-21] MEDS ORDERED: LORAZEPAM 0.5MG TABLET PO PRN (21:30)
[2019-06-21] MEDS ORDERED: INSULIN GLARGINE UD 100 UNITS/ML SYR SUBCUT SCH ×3 (22:00→23:00)
[2019-06-21] MEDS ORDERED: INSULIN GLARGINE UD 100 UNITS/ML SYR SUBCUT NR (23:00)
[2019-06-21] MEDS: DILTIAZEM HCL 120MG CAPSULE CD 24HR PO SCH (23:10)
[2019-06-22] VITALS: BP 117/75
[2019-06-22 04:00] VITALS: BP 120/83
[2019-06-22] MEDS: HYDROMORPHONE HCL 2MG TABLET PO PRN ×4 (04:37→23:14)
[2019-06-22] MEDS: INSULIN LISPRO 100 UNITS/ML SUBCUT SCH ×7 (06:31→21:00)
[2019-06-22] MEDS: BLOOD SUGAR DIAGNOSTIC STRIP TEST SCH ×4 (06:32→21:00)
[2019-06-22] MEDS: PANTOPRAZOLE 40MG DR TABLET PO SCH (06:33)
[2019-06-22] MEDS: CLINDAMYCIN HCL 150MG CAPSULE PO SCH ×4 (06:33→18:04)
[2019-06-22 08:00] VITALS: BP 129/84
[2019-06-22] MEDS: LISINOPRIL 40MG TABLET PO SCH (09:49)
[2019-06-22] MEDS ORDERED: INSULIN GLARGINE UD 100 UNITS/ML SYR SUBCUT SCH (10:00)
[2019-06-22 12:00] VITALS: BP 134/89
[2019-06-22] MEDS ORDERED: KETOROLAC 15MG/ML VIAL IV PRN ×2 (12:45)
[2019-06-22 16:00] VITALS: BP 122/87
[2019-06-22] MEDS: RIVAROXABAN 20 MG TABLET PO SCH ×2 (17:00→18:04)
[2019-06-22] MEDS ORDERED: INSULIN REGULAR (HUMULIN R) UD 100 UNITS/ML SYR SUBCUT NR (17:15)
[2019-06-22] MEDS ORDERED: ABIL5 PO (18:33)
[2019-06-22] MEDS ORDERED: COR25 PO (18:33)
[2019-06-22] MEDS ORDERED: HYDR-459 PO (18:33)
[2019-06-22] MEDS ORDERED: FERR324T11 PO (18:33)
[2019-06-22] MEDS ORDERED: TRAZ-213 PO (18:33)
[2019-06-22] MEDS ORDERED: SERT-112 PO (18:33)
[2019-06-22] MEDS ORDERED: QUET50TA PO (18:33)
[2019-06-22] MEDS ORDERED: RIVA20TA PO (18:41)
[2019-06-22] MEDS ORDERED: INSULIN LISPRO 100 UNITS/ML SUBCUT NR ×2 (18:45→23:00)
[2019-06-22 20:00] VITALS: BP 128/78
[2019-06-22] MEDS: DILTIAZEM HCL 120MG CAPSULE CD 24HR PO SCH (21:00)
[2019-06-22] MEDS: CARVEDILOL 3.125 MG TABLET PO SCH (21:00)
[2019-06-22] MEDS: INSULIN GLARGINE UD 100 UNITS/ML SYR SUBCUT SCH (21:02)
[2019-06-22] MEDS: ZOLPIDEM TARTRATE 5MG TABLET PO PRN (23:30)
[2019-06-23] VITALS: BP 125/82
[2019-06-23 04:00] VITALS: BP 121/77
[2019-06-23] MEDS: CLINDAMYCIN HCL 150MG CAPSULE PO SCH ×5 (06:00→23:40)
[2019-06-23] MEDS: PANTOPRAZOLE 40MG DR TABLET PO SCH (06:45)
[2019-06-23] MEDS: INSULIN LISPRO 100 UNITS/ML SUBCUT SCH ×7 (06:45→20:49)
[2019-06-23] MEDS: BLOOD SUGAR DIAGNOSTIC STRIP TEST SCH ×4 (06:45→20:02)
[2019-06-23 08:00] VITALS: BP 137/97
[2019-06-23] MEDS: CARVEDILOL 3.125 MG TABLET PO SCH ×2 (08:26→20:46)
[2019-06-23] MEDS: LISINOPRIL 40MG TABLET PO SCH (08:26)
[2019-06-23] MEDS: HYDROMORPHONE HCL 2MG TABLET PO PRN ×3 (08:27→20:47)
[2019-06-23 12:00] VITALS: BP 146/92
[2019-06-23] MEDS: INSULIN GLARGINE UD 100 UNITS/ML SYR SUBCUT SCH ×2 (13:06→22:04)
[2019-06-23 16:00] VITALS: BP 130/85
[2019-06-23] MEDS: RIVAROXABAN 20 MG TABLET PO SCH (17:41)
[2019-06-23 20:00] VITALS: BP 119/82
[2019-06-23] MEDS: DILTIAZEM HCL 120MG CAPSULE CD 24HR PO SCH (20:46)
[2019-06-23] MEDS: FAMOTIDINE 20MG TABLET PO SCH (20:46)
[2019-06-23] MEDS: ZOLPIDEM TARTRATE 5MG TABLET PO PRN (22:38)
[2019-06-24] VITALS: BP 111/72
[2019-06-24 04:00] VITALS: BP 115/69
[2019-06-24] MEDS: CLINDAMYCIN HCL 150MG CAPSULE PO SCH (05:24)
[2019-06-24] MEDS: BLOOD SUGAR DIAGNOSTIC STRIP TEST SCH ×2 (06:03→12:16)
[2019-06-24] MEDS: INSULIN LISPRO 100 UNITS/ML SUBCUT SCH ×4 (06:28→12:15)
[2019-06-24 08:00] VITALS: BP 104/73
[2019-06-24] MEDS: HYDROMORPHONE HCL 2MG TABLET PO PRN (08:27)
[2019-06-24] MEDS: LISINOPRIL 40MG TABLET PO SCH (09:00)
[2019-06-24] MEDS: CARVEDILOL 3.125 MG TABLET PO SCH (09:00)
[2019-06-24] MEDS: FAMOTIDINE 20MG TABLET PO SCH (09:34)
[2019-06-24] MEDS: INSULIN GLARGINE UD 100 UNITS/ML SYR SUBCUT SCH (10:31)
[2019-06-24 12:00] VITALS: BP 122/80
[2019-06-24] MEDS ORDERED: SULFAMETHOXAZOLE/TRIMETHOPRIM 800/160MG TABLET PO SCH (12:00)
[2019-06-24] MEDS ORDERED: DILT120C88 PO (12:21)
[2019-06-24] MEDS ORDERED: SULF1TAB48 MT (12:21)
[2019-06-24] MEDS ORDERED: COR3 PO (12:21)
[2019-06-24] MEDS ORDERED: LANTUSUD SUBCUT (12:21)
[2019-06-24] MEDS ORDERED: LISI40TA4 PO (12:21)
[2019-06-24] MEDS ORDERED: INSLIS SUBCUT (12:21)
[2019-06-24] MEDS ORDERED: FAMO20TA8 PO (12:21)
[2019-06-24 14:48] VITALS: BP 122/80
== END 2019-06-24 15:40 | disposition home health service (06) | DRG 351 ==
LOC: ER 13:29 → 5WST 16:51 → EDBEDREQTM 16:53 → EDBEDREQ 16:53 → EDBEDREQSVC 16:53 → ENRESERV 20:02 → EDBEDREQSVC 06-17 03:12 → ENRESERV 06-17 03:26
PROVIDERS: ADMIT Internal Medicine; ATTEND Internal Medicine
DX: M60.861 Other myositis, right lower leg (principal); E11.00 Type 2 diabetes mellitus with hyperosmolarity without nonketotic hyperglycemic-hyperosmolar coma (NKHHC); K52.1 Toxic gastroenteritis and colitis; E10.649 Type 1 diabetes mellitus with hypoglycemia without coma; L03.115 Cellulitis of right lower limb; E87.1 Hypo-osmolality and hyponatremia; E10.65 Type 1 diabetes mellitus with hyperglycemia; E87.5 Hyperkalemia; D50.9 Iron deficiency anemia, unspecified; Y92.89 Other specified places as the place of occurrence of the external cause; F17.200 Nicotine dependence, unspecified, uncomplicated; I48.91 Unspecified atrial fibrillation; R11.2 Nausea with vomiting, unspecified; T36.8X5A Adverse effect of other systemic antibiotics, initial encounter; I10 Essential (primary) hypertension; J45.909 Unspecified asthma, uncomplicated; Z86.718 Personal history of other venous thrombosis and embolism; Z98.891 History of uterine scar from previous surgery; Z79.4 Long term (current) use of insulin; Z79.01 Long term (current) use of anticoagulants; Z82.49 Family history of ischemic heart disease and other diseases of the circulatory system; Z83.3 Family history of diabetes mellitus; Z79.899 Other long term (current) drug therapy; Z88.8 Allergy status to other drugs, medicaments and biological substances
CPT/HCPCS: 36415; 36600; 71045; 73700; 80048; 80305; 81003; 82010; 82375; 82550; 82805; 82962; 83605; 83735; 84100; 84145; 84703; 85651; 86140; 93970; 97162; 99285; C1893; J0610; J1170; J1200; J1815; J2185; J2270; J2405; J3370; J3490; J7030; J7050; J7060; Q0162; Q0163

== ENCOUNTER 2019-07-01 21:35 | Emergency (ER) | payer MEDICAID ==
[~2019-07-01] VITALS: Ht 154.9 cm; Wt 61.0 kg
[~2019-07-01 21:35] MED LIST changes: +ABIL5 PO; -ACET5SOL2 PO; -ALBU6.7H INH; +COR3 PO; -DILT120C11 MT; +DILT120C88 PO; -ERYT-113 MT; +FAMO20TA8 PO; +FERR324T11 PO; -GABA-531 PO; +HYDR-459 PO; -INSU100I24 SQ; +LANTUSUD SUBCUT; -PANT40TA4 PO; +QUET50TA PO; +RIVA20TA PO; +SERT-112 PO; +SULF1TAB48 MT; +TRAZ-213 PO
[2019-07-02] MEDS ORDERED: ONDANSETRON HCL 4MG/2ML INJ IV STA (00:41)
[2019-07-02] MEDS ORDERED: SODIUM CHLORIDE 0.9% 1,000 ML IV ONE ×2 (00:41→03:14)
[2019-07-02] MEDS ORDERED: SULFAMETHOXAZOLE/TRIMETHOPRIM 800/160MG TABLET PO ONE (00:45)
[2019-07-02] MEDS ORDERED: FLUCONAZOLE 100MG TABLET PO ONE (00:45)
[2019-07-02] MEDS ORDERED: NITROFURANTOIN 100MG M/M CAPSULE PO ONE (00:45)
[2019-07-02 01:20] LABS: BASOPHILS % 1.5 % (0.0-2.0); EOSINOPHILS % 0.3 % (0.0-5.0); HEMATOCRIT. 34.2 % (36.0-48.0); HEMOGLOBIN. 10.5 g/dL (12.0-16.0); LYMPHOCYTES % 41.2 % (20.0-50.0); MEAN CORPUSCULAR HEMOGLOBIN 22.3 pg (28.0-32.0); MEAN CORPUSCULAR VOLUME 72.7 fL (81.0-99.0); MEAN PLATELET VOLUME 7.3 fl (7.4-10.4); MONOCYTES % 3.7 % (2.0-8.0); NEUTROPHILS % 53.3 % (40.0-76.0); PLATELET 389 x1000/uL (130-400); RED CELL DISTRIBUTION WIDTH 16.7 % (11.6-14.6)
[2019-07-02 01:25] LABS: CHLORIDE 98 mEq/L (98-107)
[2019-07-02 01:28] LABS: HCG SCREEN NEGATIVE
[2019-07-02 01:29] LABS: ETHANOL BLOOD < 10 mg/dL
[2019-07-02 02:00] LABS: CLARITY URINE CLEAR (CLEAR); COLOR URINE YELLOW (YELLOW); KETONES URINE NEGATIVE (NEGATIVE); LEUKOCYTE ESTERASE URINE NEGATIVE (NEGATIVE); NITRITE URINE NEGATIVE (NEGATIVE); OCCULT BLOOD URINE NEGATIVE (NEGATIVE); PROTEIN URINE TRACE (NEGATIVE); SPECIFIC GRAVITY URINE 1.028 (1.005-1.030); UROBILINOGEN URINE 0.2 E.U./dL (0.2-1.0)
[2019-07-02] MEDS ORDERED: DIPHENHYDRAMINE 50MG/ML VIAL IV ONE ×2 (02:15→05:15)
[2019-07-02] MEDS ORDERED: INSULIN REGULAR (HUMULIN R) 300UNITS/3ML IV ONE (02:15)
[2019-07-02] MEDS ORDERED: INSULIN REGULAR (HUMULIN R) 300UNITS/3ML SUBCUT ONE (02:15)
[2019-07-02 02:24] LABS: *AMPHETAMINES SCREEN URINE NEGATIVE (NEGATIVE); *BARBITURATES SCREEN URINE NEGATIVE (NEGATIVE); *BENZODIAZEPINES SCREEN URINE NEGATIVE (NEGATIVE); *COCAINE SCREEN URINE NEGATIVE (NEGATIVE); CANNABINOID URINE SCREEN NEGATIVE (NEGATIVE); PHENCYCLIDINE URINE SCREEN NEGATIVE (NEGATIVE)
[2019-07-02 02:25] LABS: METHADONE URINE SCREEN NEGATIVE (NEGATIVE); OPIATES URINE SCREEN NEGATIVE (NEGATIVE)
[2019-07-02] MEDS ORDERED: DEXTROSE 50% WATER 50ML SYRINGE IV ONE (03:45)
[2019-07-02 04:07] LABS: CHLORIDE 107 mEq/L (98-107)
[2019-07-02] MEDS ORDERED: CYCLOBENZAPRINE 10MG TABLET PO ONE (05:00)
[2019-07-02 06:32] VITALS: BP 111/75
== END 2019-07-02 06:46 | disposition home or self-care (01) ==
LOC: ER 21:35
DX: L29.9 Pruritus, unspecified (principal); M79.604 Pain in right leg; E11.9 Type 2 diabetes mellitus without complications; I48.91 Unspecified atrial fibrillation; I10 Essential (primary) hypertension; F17.210 Nicotine dependence, cigarettes, uncomplicated; Z88.5 Allergy status to narcotic agent; J45.909 Unspecified asthma, uncomplicated; Z79.01 Long term (current) use of anticoagulants; Z98.890 Other specified postprocedural states; Z88.0 Allergy status to penicillin; Z79.4 Long term (current) use of insulin
CPT/HCPCS: 36415; 80048; 80053; 80305; 80320; 81003; 82962; 83605; 83690; 84484; 84703; 85025; 87040; 87077; 87086; 87186; 96361; 96374; 96375; 99284; J1200; J1815; J2405; J7030; Z7610; G0480

== ENCOUNTER 2019-07-06 20:12 | Inpatient (IN) | payer MEDICAID ==
[~2019-07-06] VITALS: Ht 154.9 cm; Wt 64.0 kg
[2019-07-06] MEDS ORDERED: MORPHINE SULFATE 4 MG/ML CPJ (NOT FOR IM USE) IV STA (21:17)
[2019-07-06] MEDS ORDERED: ONDANSETRON HCL 4MG/2ML INJ IV STA (21:17)
[2019-07-06] MEDS ORDERED: SODIUM CHLORIDE 0.9% 1,000 ML IV ONE (21:17)
[2019-07-06 21:30] LABS: CLARITY URINE CLEAR (CLEAR); COLOR URINE YELLOW (YELLOW); KETONES URINE NEGATIVE (NEGATIVE); LEUKOCYTE ESTERASE URINE NEGATIVE (NEGATIVE); NITRITE URINE NEGATIVE (NEGATIVE); OCCULT BLOOD URINE NEGATIVE (NEGATIVE); PROTEIN URINE TRACE (NEGATIVE); SPECIFIC GRAVITY URINE 1.027 (1.005-1.030); UROBILINOGEN URINE 0.2 E.U./dL (0.2-1.0)
[2019-07-06] MEDS ORDERED: CLINDAMYCIN 600 MG in DEXTROSE 5% WATER 50 ML IV ONE (21:30)
[2019-07-06] MEDS ORDERED: DIPHENHYDRAMINE 50MG/ML VIAL IV ONE (21:30)
[2019-07-06 22:48] LABS: BASOPHILS % 0.2 % (0.0-2.0); HEMOGLOBIN. 10.5 g/dL (12.0-16.0); MEAN CORPUSCULAR HEMOGLOBIN 22.5 pg (28.0-32.0); MEAN CORPUSCULAR VOLUME 74.9 fL (81.0-99.0); MEAN PLATELET VOLUME 7.7 fl (7.4-10.4); MONOCYTES % 3.2 % (2.0-8.0); NEUTROPHILS % 64.6 % (40.0-76.0); PLATELET 307 x1000/uL (130-400); RED BLOOD CELL COUNT 4.68 mill/uL (4.2-5.4); RED CELL DISTRIBUTION WIDTH 16.7 % (11.6-14.6)
[2019-07-06 22:50] LABS: CHLORIDE 97 mEq/L (98-107)
[2019-07-06 22:53] LABS: INR 0.9; PARTIAL THROMBOPLASTIN TIME 23.9 sec (23.4-31.0)
[2019-07-06 22:54] LABS: HCG SCREEN NEGATIVE
[2019-07-06 22:55] LABS: AMYLASE 58 IU/L (25-115); ETHANOL BLOOD < 10 mg/dL
[2019-07-06 22:59] LABS: CREATINE KINASE 64 IU/L (26-192)
[2019-07-06 23:00] LABS: BETA HYDROXYBUTYRATE 0.5 mMol/L (0.0-0.3)
[2019-07-06 23:02] LABS: CREATINE KINASE MB FRACTION < 1.0 ng/mL (0.5-3.6)
[2019-07-06] MEDS ORDERED: INSULIN REGULAR (HUMULIN R) 300UNITS/3ML IV ONE (23:30)
[2019-07-06] MEDS ORDERED: CLINDAMYCIN 600MG PREMIX 50 ML IV NR (23:30)
[2019-07-06] MEDS ORDERED: INSULIN REGULAR (HUMULIN R) 300UNITS/3ML SUBCUT ONE (23:30)
[2019-07-06 23:51] LABS: PHOSPHORUS 3.8 mg/dL (2.5-4.9)
[2019-07-07 00:34] LABS: CHLORIDE 103 mEq/L (98-107)
[2019-07-07] MEDS ORDERED: ONDANSETRON HCL 4MG/2ML INJ IV PRN ×2 (01:30→12:30)
[2019-07-07] MEDS: DIPHENHYDRAMINE 50MG/ML VIAL IV PRN ×4 (01:45→09:40)
[2019-07-07] MEDS: MORPHINE SULFATE 4 MG/ML CPJ (NOT FOR IM USE) IV PRN ×2 (01:46→06:21)
[2019-07-07 03:01] LABS: CHLORIDE 111 mEq/L (98-107)
[2019-07-07 05:28] LABS: CHLORIDE 113 mEq/L (98-107)
[2019-07-07] MEDS: KETOROLAC 30MG/ML VIAL IV PRN ×3 (06:20→20:08)
[2019-07-07 10:27] LABS: *AMPHETAMINES SCREEN URINE NEGATIVE (NEGATIVE); *BARBITURATES SCREEN URINE NEGATIVE (NEGATIVE); *BENZODIAZEPINES SCREEN URINE NEGATIVE (NEGATIVE); *COCAINE SCREEN URINE NEGATIVE (NEGATIVE)
[2019-07-07 10:28] LABS: CANNABINOID URINE SCREEN NEGATIVE (NEGATIVE); METHADONE URINE SCREEN NEGATIVE (NEGATIVE); PHENCYCLIDINE URINE SCREEN NEGATIVE (NEGATIVE)
[2019-07-07 10:30] LABS: OPIATES URINE SCREEN PRESUMTIVE POSITIVE (NEGATIVE)
[2019-07-07 10:50] VITALS: BP 135/72
[2019-07-07 12:00] VITALS: BP 156/102
[2019-07-07] MEDS ORDERED: ACETAMINOPHEN 325MG TABLET PO PRN (12:30)
[2019-07-07] MEDS ORDERED: DOCUSATE SODIUM 100MG CAPSULE PO PRN (12:30)
[2019-07-07] MEDS ORDERED: HYDROXYZINE 25MG TABLET PO PRN (12:30)
[2019-07-07] MEDS ORDERED: IPRATROPIUM/ALBUTEROL 0.5-3(2.5)MG/3ML NEB HHN PRN (12:30)
[2019-07-07] MEDS ORDERED: HYDROCODONE/ACETAMINOPHEN 5/325MG TABLET PO PRN (12:30)
[2019-07-07] MEDS ORDERED: CLONIDINE 0.1MG TABLET PO PRN (12:30)
[2019-07-07] MEDS ORDERED: LORAZEPAM 0.5MG TABLET PO PRN (12:30)
[2019-07-07] MEDS ORDERED: DEXTROSE 50% WATER 50ML SYRINGE IV PRN (12:45)
[2019-07-07] MEDS: BLOOD SUGAR DIAGNOSTIC STRIP TEST SCH ×3 (13:26→20:19)
[2019-07-07] MEDS: INSULIN LISPRO 100 UNITS/ML SUBCUT SCH ×5 (13:30→20:19)
[2019-07-07] MEDS: FAMOTIDINE 20MG TABLET PO SCH ×2 (13:43→20:07)
[2019-07-07] MEDS ORDERED: SERTRALINE HCL 100MG TABLET PO SCH (14:00)
[2019-07-07] MEDS ORDERED: ARIPIPRAZOLE 5MG TABLET PO SCH (14:00)
[2019-07-07] MEDS ORDERED: INSULIN GLARGINE UD 100 UNITS/ML SYR SUBCUT NR (14:15)
[2019-07-07] MEDS ORDERED: DIPHENHYDRAMINE 50MG/ML VIAL IV PRN (14:15)
[2019-07-07] MEDS ORDERED: LISINOPRIL 40MG TABLET PO SCH (15:00)
[2019-07-07] MEDS ORDERED: INSULIN LISPRO 100 UNITS/ML SUBCUT NR (15:00)
[2019-07-07 16:30] VITALS: BP 123/89
[2019-07-07] MEDS ORDERED: RIVAROXABAN 20 MG TABLET PO SCH (17:00)
[2019-07-07] MEDS ORDERED: BLOOD SUGAR DIAGNOSTIC STRIP TEST SCH (17:30)
[2019-07-07] MEDS ORDERED: INSULIN LISPRO 100 UNITS/ML SUBCUT SCH ×2 (17:30→18:00)
[2019-07-07] MEDS ORDERED: MORPHINE SULFATE 4 MG/ML CPJ (NOT FOR IM USE) IV PRN (18:00)
[2019-07-07 20:00] VITALS: BP 135/85
[2019-07-07 20:08] VITALS: BP 135/85
[2019-07-07] MEDS ORDERED: DILTIAZEM HCL 120MG CAPSULE CD 24HR PO SCH (21:00)
[2019-07-07] MEDS ORDERED: CARVEDILOL 3.125 MG TABLET PO SCH (21:00)
[2019-07-07] MEDS ORDERED: INSULIN GLARGINE UD 100 UNITS/ML SYR SUBCUT SCH (22:00)
== END 2019-07-07 18:40 | disposition left against medical advice (07) | DRG 383 ==
LOC: ER 20:12 → 5EST 07-07 00:21 → EDBEDREQSVC 07-07 00:27 → EDBEDREQ 07-07 00:27 → EDBEDREQTM 07-07 00:27 → CANRESERV 07-07 05:20 → ENRESERV 07-07 05:20
PROVIDERS: ADMIT Internal Medicine; ATTEND Internal Medicine
DX: L03.115 Cellulitis of right lower limb (principal); R65.10 Systemic inflammatory response syndrome (SIRS) of non-infectious origin without acute organ dysfunction; E10.65 Type 1 diabetes mellitus with hyperglycemia; I48.20 Chronic atrial fibrillation, unspecified; D50.9 Iron deficiency anemia, unspecified; F17.200 Nicotine dependence, unspecified, uncomplicated; G89.4 Chronic pain syndrome; I10 Essential (primary) hypertension; Z53.29 Procedure and treatment not carried out because of patient's decision for other reasons; J45.909 Unspecified asthma, uncomplicated; Z79.01 Long term (current) use of anticoagulants; Z79.4 Long term (current) use of insulin; Z98.891 History of uterine scar from previous surgery; Z82.49 Family history of ischemic heart disease and other diseases of the circulatory system; Z83.3 Family history of diabetes mellitus; Z86.711 Personal history of pulmonary embolism; Z86.718 Personal history of other venous thrombosis and embolism; Z79.899 Other long term (current) drug therapy
CPT/HCPCS: 36415; 73718; 80048; 80305; 80320; 81003; 82010; 82150; 82550; 82553; 82962; 83605; 83735; 83880; 84100; 84443; 84484; 84703; 85651; 93005; 93970; 99285; C1893; J1200; J1815; J1885; J2270; J2405; J3490; J7030; J7060; G0480

== ENCOUNTER 2019-07-31 18:55 | Emergency (ER) | payer MEDICAID ==
[~2019-07-31] VITALS: Ht 154.9 cm; Wt 62.0 kg
[2019-07-31 22:07] LABS: EOSINOPHILS % 0.1 % (0.0-5.0); HEMATOCRIT. 29.8 % (36.0-48.0); HEMOGLOBIN. 9.3 g/dL (12.0-16.0); LYMPHOCYTES % 46.4 % (20.0-50.0); MEAN CORPUSCULAR HEMOGLOBIN 22.4 pg (28.0-32.0); MEAN CORPUSCULAR VOLUME 71.8 fL (81.0-99.0); MEAN PLATELET VOLUME 7.3 fl (7.4-10.4); MONOCYTES % 5.7 % (2.0-8.0); NEUTROPHILS % 46.8 % (40.0-76.0); PLATELET 291 x1000/uL (130-400); RED BLOOD CELL COUNT 4.15 mill/uL (4.2-5.4); RED CELL DISTRIBUTION WIDTH 17.2 % (11.6-14.6)
[2019-07-31 22:11] LABS: CHLORIDE 107 mEq/L (98-107)
[2019-07-31 22:12] LABS: HCG SCREEN NEGATIVE
[2019-07-31] MEDS ORDERED: INSULIN LISPRO 100 UNITS/ML SUBCUT ONE (22:30)
[2019-07-31 23:30] VITALS: BP 151/100
== END 2019-07-31 23:38 | disposition home or self-care (01) ==
LOC: ER 18:55
DX: M76.31 Iliotibial band syndrome, right leg (principal); J45.909 Unspecified asthma, uncomplicated; E11.9 Type 2 diabetes mellitus without complications; I10 Essential (primary) hypertension; I48.91 Unspecified atrial fibrillation; Z76.5 Malingerer [conscious simulation]; Z79.899 Other long term (current) drug therapy; Z88.0 Allergy status to penicillin; Z88.5 Allergy status to narcotic agent; Z88.1 Allergy status to other antibiotic agents; Z88.8 Allergy status to other drugs, medicaments and biological substances; Z88.6 Allergy status to analgesic agent
CPT/HCPCS: 36415; 80053; 83690; 84703; 85025; 96372; 99283; J1815

== ENCOUNTER 2019-07-31 23:30 | Emergency (ER) | payer MEDICAID ==
[~2019-07-31] VITALS: Ht 154.9 cm; Wt 62.0 kg
[2019-08-01 03:00] VITALS: BP 128/85
== END 2019-08-01 03:57 | disposition left against medical advice (07) ==
LOC: ER 23:30
DX: M79.604 Pain in right leg (principal); Z53.21 Procedure and treatment not carried out due to patient leaving prior to being seen by health care provider

== ENCOUNTER 2019-08-02 12:19 | Inpatient (IN) | payer MEDICAID ==
[~2019-08-02] VITALS: Ht 154.9 cm; Wt 74.6 kg
[2019-08-02] MEDS ORDERED: SODIUM CHLORIDE 0.9% 1,000 ML IV SCH (12:33)
[2019-08-02] MEDS ORDERED: FAMOTIDINE 20MG/2ML VIAL IV ONE (12:45)
[2019-08-02] MEDS ORDERED: DIPHENHYDRAMINE 50MG/ML VIAL IV ONE ×2 (12:45→20:45)
[2019-08-02] MEDS ORDERED: METHYLPREDNISOLONE SOD SUCC 125 MG/2 ML VIAL IV ONE (12:45)
[2019-08-02 12:57] LABS: BG BASE EXCESS -6.2 mmol/L (-2.0-2.0); BG CARBOXYHEMOGLOBIN 0.7 % (0.5-1.5); BG DEOXYHEMOGLOBIN 2.8 % (0.0-5.0); BG METHEMOGLOBIN 0.2 % (0.0-1.5); BG OXYGEN SATURATION 97.2 % (92.0-98.5); BG OXYHEMOGLOBIN 96.3 % (94.0-97.0); BG PCO2 31.2 mmHg (35.0-45.0); BG PO2 98.9 mmHg (75.0-100.0); BG SAMPLE SITE RIGHT RADIAL; BG VENT MODE ROOM AIR
[2019-08-02 14:28] LABS: HEMATOCRIT. 33.7 % (36.0-48.0); HEMOGLOBIN. 10.1 g/dL (12.0-16.0); MEAN CORPUSCULAR VOLUME 73.7 fL (81.0-99.0); MEAN PLATELET VOLUME 8.4 fl (7.4-10.4); PLATELET 364 x1000/uL (130-400); RED BLOOD CELL COUNT 4.57 mill/uL (4.2-5.4); RED CELL DISTRIBUTION WIDTH 17.5 % (11.6-14.6)
[2019-08-02 14:35] LABS: CHLORIDE 96 mEq/L (98-107)
[2019-08-02 14:44] LABS: CLARITY URINE CLEAR (CLEAR); COLOR URINE YELLOW (YELLOW); KETONES URINE 1+ (NEGATIVE); LEUKOCYTE ESTERASE URINE NEGATIVE (NEGATIVE); NITRITE URINE NEGATIVE (NEGATIVE); OCCULT BLOOD URINE NEGATIVE (NEGATIVE); PH URINE 5.5 (4.5-8.0); PROTEIN URINE NEGATIVE (NEGATIVE); SPECIFIC GRAVITY URINE 1.023 (1.005-1.030); UROBILINOGEN URINE 0.2 E.U./dL (0.2-1.0)
[2019-08-02] MEDS ORDERED: SODIUM CHLORIDE 0.9% 1,000 ML IV ONE (14:47)
[2019-08-02 14:50] LABS: PLATELET ESTIMATE NORMAL
[2019-08-02] MEDS ORDERED: INSULIN REGULAR (HUMULIN R) 300UNITS/3ML IV ONE (15:00)
[2019-08-02] MEDS ORDERED: INSULIN REGULAR (HUMULIN R) UD 100 UNITS/ML SYR SUBCUT ONE ×2 (17:45→19:15)
[2019-08-02] MEDS ORDERED: INSULIN REGULAR (HUMULIN R) 300UNITS/3ML SUBCUT NR (18:46)
[2019-08-02] MEDS ORDERED: MORPHINE SULFATE 2 MG/ML CPJ (NOT FOR IM USE) IV ONE ×2 (20:35→20:45)
[2019-08-02] MEDS ORDERED: MORPHINE SULFATE 2 MG/ML CPJ (NOT FOR IM USE) IV NR (20:49)
[2019-08-02] MEDS ORDERED: DIPHENHYDRAMINE 50MG/ML VIAL IV NR (20:50)
[2019-08-02] MEDS ORDERED: INSULIN GLARGINE UD 100 UNITS/ML SYR SUBCUT NR (21:07)
[2019-08-02] MEDS ORDERED: INSULIN LISPRO(HUMALOG)300 UNIT/3ML VIAL SUBCUT NR (21:15)
[2019-08-02 21:30] VITALS: BP 133/93
[2019-08-02] MEDS ORDERED: ENOXAPARIN 40MG/0.4ML SYR SUBCUT SCH (21:45)
[2019-08-02] MEDS ORDERED: ONDANSETRON HCL 4MG/2ML INJ IV PRN (21:45)
[2019-08-02] MEDS: QUETIAPINE FUMARATE 50MG TABLET PO SCH (22:59)
[2019-08-02] MEDS: DILTIAZEM HCL 120MG CAPSULE CD 24HR PO SCH (22:59)
[2019-08-03 00:21] VITALS: BP 130/79
[2019-08-03] MEDS: MORPHINE SULFATE 2 MG/ML CPJ (NOT FOR IM USE) IV PRN ×4 (01:18→16:33)
[2019-08-03 04:00] VITALS: BP 108/69
[2019-08-03] MEDS: IPRATROPIUM/ALBUTEROL 0.5-3(2.5)MG/3ML NEB HHN SCH ×5 (04:55→21:20)
[2019-08-03] MEDS: DIPHENHYDRAMINE 50MG/ML VIAL IV SCH ×3 (05:11→16:31)
[2019-08-03] MEDS: SODIUM CHLORIDE 0.9% 1,000 ML IV SCH ×2 (06:02→21:46)
[2019-08-03] MEDS: INSULIN LISPRO 100 UNITS/ML SUBCUT SCH ×4 (06:33→21:19)
[2019-08-03 06:51] LABS: CHLORIDE 107 mEq/L (98-107)
[2019-08-03 06:55] LABS: BASOPHILS % 0.3 % (0.0-2.0); HEMATOCRIT. 26.6 % (36.0-48.0); HEMOGLOBIN. 8.1 g/dL (12.0-16.0); LYMPHOCYTES % 26.7 % (20.0-50.0); MEAN CORPUSCULAR HEMOGLOBIN 21.8 pg (28.0-32.0); MEAN CORPUSCULAR VOLUME 71.2 fL (81.0-99.0); MONOCYTES % 9.5 % (2.0-8.0); NEUTROPHILS % 63.5 % (40.0-76.0); PLATELET 363 x1000/uL (130-400); RED BLOOD CELL COUNT 3.73 mill/uL (4.2-5.4); RED CELL DISTRIBUTION WIDTH 17.5 % (11.6-14.6)
[2019-08-03 08:35] VITALS: BP 116/71
[2019-08-03] MEDS ORDERED: RIVAROXABAN 20 MG TABLET PO SCH (09:00)
[2019-08-03] MEDS: SERTRALINE HCL 100MG TABLET PO SCH (09:00)
[2019-08-03] MEDS ORDERED: LIDOCAINE HCL 1% 20ML VIAL (Pyxis) INJ ONE (09:21)
[2019-08-03] MEDS ORDERED: INSULIN GLARGINE UD 100 UNITS/ML SYR SUBCUT SCH (10:00)
[2019-08-03] MEDS: ARIPIPRAZOLE 5MG TABLET PO SCH (10:20)
[2019-08-03] MEDS: CARVEDILOL 3.125 MG TABLET PO SCH ×2 (10:21→21:50)
[2019-08-03] MEDS: LISINOPRIL 40MG TABLET PO SCH (10:21)
[2019-08-03] MEDS: FAMOTIDINE 20MG/2ML VIAL IV SCH ×2 (10:21→20:52)
[2019-08-03] MEDS: PREDNISONE 20MG TABLET PO SCH ×2 (10:22→16:31)
[2019-08-03 12:00] VITALS: BP 139/97
[2019-08-03 16:00] VITALS: BP 137/91
[2019-08-03 18:07] LABS: PROTHROMBIN TIME 10.8 sec (9.6-11.0)
[2019-08-03 18:20] LABS: C REACTIVE PROTEIN QUANT 1.5 mg/L (0.0-3.0)
[2019-08-03] MEDS: ENOXAPARIN 80MG/0.8ML SYR SUBCUT SCH ×2 (18:30→20:51)
[2019-08-03 20:25] VITALS: BP 121/77
[2019-08-03] MEDS: DILTIAZEM HCL 120MG CAPSULE CD 24HR PO SCH (20:51)
[2019-08-03] MEDS: QUETIAPINE FUMARATE 50MG TABLET PO SCH (20:51)
[2019-08-03] MEDS: MORPHINE SULFATE 4 MG/ML CPJ (NOT FOR IM USE) IV PRN (20:53)
[2019-08-03] MEDS: INSULIN GLARGINE UD 100 UNITS/ML SYR SUBCUT SCH (21:18)
[2019-08-03] MEDS: DIPHENHYDRAMINE 50MG/ML VIAL IV PRN (21:20)
[2019-08-04 00:12] VITALS: BP 125/80
[2019-08-04] MEDS: MORPHINE SULFATE 4 MG/ML CPJ (NOT FOR IM USE) IV PRN ×5 (03:06→22:53)
[2019-08-04] MEDS: SODIUM CHLORIDE 0.9% 1,000 ML IV SCH (03:07)
[2019-08-04] MEDS: DIPHENHYDRAMINE 50MG/ML VIAL IV PRN ×2 (03:23→22:54)
[2019-08-04 04:00] VITALS: BP 131/89
[2019-08-04] MEDS: IPRATROPIUM/ALBUTEROL 0.5-3(2.5)MG/3ML NEB HHN SCH ×6 (04:00→20:00)
[2019-08-04] MEDS: ENOXAPARIN 80MG/0.8ML SYR SUBCUT SCH ×2 (05:33→18:23)
[2019-08-04] MEDS: DIPHENHYDRAMINE 50MG/ML VIAL IV SCH ×3 (06:37→18:36)
[2019-08-04] MEDS: INSULIN LISPRO 100 UNITS/ML SUBCUT SCH ×4 (06:38→21:59)
[2019-08-04 08:25] VITALS: BP 131/89
[2019-08-04] MEDS: PREDNISONE 20MG TABLET PO SCH ×2 (08:37→18:23)
[2019-08-04] MEDS: CARVEDILOL 3.125 MG TABLET PO SCH ×2 (08:40→21:42)
[2019-08-04] MEDS: LISINOPRIL 40MG TABLET PO SCH (08:40)
[2019-08-04] MEDS: FAMOTIDINE 20MG/2ML VIAL IV SCH ×2 (08:41→21:41)
[2019-08-04] MEDS: ARIPIPRAZOLE 5MG TABLET PO SCH (08:41)
[2019-08-04] MEDS: SERTRALINE HCL 100MG TABLET PO SCH (08:48)
[2019-08-04] MEDS ORDERED: INSULIN GLARGINE UD 100 UNITS/ML SYR SUBCUT SCH (10:00)
[2019-08-04 11:36] VITALS: BP 135/96
[2019-08-04 16:13] VITALS: BP 133/92
[2019-08-04 20:29] VITALS: BP 146/98
[2019-08-04] MEDS: DICLOFENAC SODIUM 75MG DR (EC) TABLET PO SCH (21:41)
[2019-08-04] MEDS: QUETIAPINE FUMARATE 50MG TABLET PO SCH (21:41)
[2019-08-04] MEDS: CYCLOBENZAPRINE 10MG TABLET PO SCH (21:41)
[2019-08-04] MEDS: DILTIAZEM HCL 120MG CAPSULE CD 24HR PO SCH (21:42)
[2019-08-04] MEDS: HYDROCORTISONE 2.5% CREAM 20GM TOP SCH (21:57)
[2019-08-04] MEDS: TRIAMCINOLONE ACETONIDE 0.1% CREAM 15GM TOP SCH (21:57)
[2019-08-04] MEDS: INSULIN GLARGINE UD 100 UNITS/ML SYR SUBCUT SCH (22:38)
[2019-08-05 00:39] VITALS: BP 144/92
[2019-08-05] MEDS: SODIUM CHLORIDE 0.9% 1,000 ML IV SCH ×4 (01:01→20:58)
[2019-08-05] MEDS: IPRATROPIUM/ALBUTEROL 0.5-3(2.5)MG/3ML NEB HHN SCH ×6 (01:05→20:55)
[2019-08-05] MEDS: MORPHINE SULFATE 4 MG/ML CPJ (NOT FOR IM USE) IV PRN ×5 (03:00→20:46)
[2019-08-05 04:00] VITALS: BP 123/79
[2019-08-05] MEDS: ENOXAPARIN 80MG/0.8ML SYR SUBCUT SCH ×2 (06:00→18:00)
[2019-08-05] MEDS: DIPHENHYDRAMINE 50MG/ML VIAL IV SCH ×3 (06:09→21:49)
[2019-08-05] MEDS: INSULIN LISPRO 100 UNITS/ML SUBCUT SCH ×4 (07:27→20:55)
[2019-08-05 07:48] LABS: CREATINE KINASE 25 IU/L (26-192)
[2019-08-05 08:06] VITALS: BP 138/97
[2019-08-05] MEDS: FAMOTIDINE 20MG/2ML VIAL IV SCH ×2 (08:53→20:43)
[2019-08-05] MEDS: PREDNISONE 20MG TABLET PO SCH ×2 (08:54→16:34)
[2019-08-05] MEDS: HYDROXYCHLOROQUINE SULFATE 200MG TABLET PO SCH (08:54)
[2019-08-05] MEDS: LISINOPRIL 40MG TABLET PO SCH (08:54)
[2019-08-05] MEDS: CARVEDILOL 3.125 MG TABLET PO SCH ×2 (08:55→20:44)
[2019-08-05] MEDS: SERTRALINE HCL 100MG TABLET PO SCH (08:56)
[2019-08-05] MEDS: DICLOFENAC SODIUM 75MG DR (EC) TABLET PO SCH ×2 (08:56→20:44)
[2019-08-05] MEDS: HYDROCORTISONE 2.5% CREAM 20GM TOP SCH ×2 (08:56→20:45)
[2019-08-05] MEDS: ARIPIPRAZOLE 5MG TABLET PO SCH (08:57)
[2019-08-05] MEDS: TRIAMCINOLONE ACETONIDE 0.1% CREAM 15GM TOP SCH ×2 (08:57→20:45)
[2019-08-05 12:01] VITALS: BP 168/113
[2019-08-05 15:58] VITALS: BP 140/98
[2019-08-05 20:18] VITALS: BP 146/104
[2019-08-05] MEDS: CYCLOBENZAPRINE 10MG TABLET PO SCH (20:44)
[2019-08-05] MEDS: QUETIAPINE FUMARATE 50MG TABLET PO SCH (20:44)
[2019-08-05] MEDS: DILTIAZEM HCL 120MG CAPSULE CD 24HR PO SCH (20:44)
[2019-08-05] MEDS: INSULIN GLARGINE UD 100 UNITS/ML SYR SUBCUT SCH (21:49)
[2019-08-06 00:07] VITALS: BP 118/82
[2019-08-06] MEDS: IPRATROPIUM/ALBUTEROL 0.5-3(2.5)MG/3ML NEB HHN SCH ×4 (00:34→11:55)
[2019-08-06 04:00] VITALS: BP 151/91
[2019-08-06] MEDS: ENOXAPARIN 80MG/0.8ML SYR SUBCUT SCH (05:25)
[2019-08-06] MEDS: DIPHENHYDRAMINE 50MG/ML VIAL IV SCH ×2 (05:25→13:22)
[2019-08-06 06:07] LABS: BASOPHILS % 0.1 % (0.0-2.0); HEMATOCRIT. 24.4 % (36.0-48.0); HEMOGLOBIN. 7.5 g/dL (12.0-16.0); LYMPHOCYTES % 26.7 % (20.0-50.0); MEAN CORPUSCULAR HEMOGLOBIN 21.9 pg (28.0-32.0); MEAN CORPUSCULAR VOLUME 71.1 fL (81.0-99.0); MEAN PLATELET VOLUME 6.8 fl (7.4-10.4); NEUTROPHILS % 66.2 % (40.0-76.0); PLATELET 242 x1000/uL (130-400); RED BLOOD CELL COUNT 3.44 mill/uL (4.2-5.4)
[2019-08-06 06:22] LABS: CHLORIDE 105 mEq/L (98-107)
[2019-08-06] MEDS: MORPHINE SULFATE 4 MG/ML CPJ (NOT FOR IM USE) IV PRN ×3 (06:52→15:59)
[2019-08-06] MEDS: SODIUM CHLORIDE 0.9% 1,000 ML IV SCH (06:55)
[2019-08-06 08:00] VITALS: BP 130/83
[2019-08-06] MEDS: PREDNISONE 20MG TABLET PO SCH ×2 (08:25→16:07)
[2019-08-06] MEDS: LISINOPRIL 40MG TABLET PO SCH (08:25)
[2019-08-06] MEDS: HYDROXYCHLOROQUINE SULFATE 200MG TABLET PO SCH (08:25)
[2019-08-06] MEDS: DICLOFENAC SODIUM 75MG DR (EC) TABLET PO SCH (08:25)
[2019-08-06] MEDS: CARVEDILOL 3.125 MG TABLET PO SCH (08:26)
[2019-08-06] MEDS: TRIAMCINOLONE ACETONIDE 0.1% CREAM 15GM TOP SCH (08:26)
[2019-08-06] MEDS: FAMOTIDINE 20MG/2ML VIAL IV SCH (08:26)
[2019-08-06] MEDS: HYDROCORTISONE 2.5% CREAM 20GM TOP SCH (08:26)
[2019-08-06] MEDS: INSULIN LISPRO 100 UNITS/ML SUBCUT SCH ×3 (08:27→18:38)
[2019-08-06] MEDS: ARIPIPRAZOLE 5MG TABLET PO SCH (08:30)
[2019-08-06] MEDS: SERTRALINE HCL 100MG TABLET PO SCH (08:30)
[2019-08-06 09:06] LABS: COMPLEMENT C3 142 mg/dL (82-167); G6PD RBC 3.53 x10E6/uL (3.77-5.28)
[2019-08-06 12:00] VITALS: BP 157/102
[2019-08-06 13:06] LABS: ANTI-DNA DOUBLE STRANDED QUANT < 1 IU/mL (0-9); G6PD QUANTITATIVE 442 (146-376); RNP ANTIBODY 0.2 AI (0.0-0.9); SMITH ANTIBODY < 0.2 AI (0.0-0.9)
[2019-08-06 16:00] VITALS: BP 165/112
[2019-08-06 17:14] VITALS: BP 165/112
[2019-08-06] MEDS ORDERED: HYDRALAZINE 20MG/ML VIAL IV NR (18:00)
[2019-08-07 13:06] LABS: ALDOLASE 4.6 U/L (3.3-10.3); ATYPICAL P-ANCA <1:20 titer (Neg:<1:20); CYTOPLASMIC C-ANCA <1:20 titer (Neg:<1:20); PERINUCLEAR P-ANCA <1:20 titer (Neg:<1:20)
[2019-08-07 14:07] LABS: ANA IFA Negative (.); ANTI-MYELOPEROXIDASE AB < 9.0 U/mL (0.0-9.0); ANTI-PROTEINASE 3 ABS < 3.5 U/mL (0.0-3.5)
== END 2019-08-06 19:45 | disposition home or self-care (01) | DRG 811 ==
LOC: ER 12:19 → 6WST 15:05 → ENRESERV 17:23
PROVIDERS: ADMIT Internal Medicine; ATTEND Internal Medicine
PROC: 02HV33Z Insertion of Infusion Device into Superior Vena Cava, Percutaneous Approach (ICD-10-PCS; principal; 2019-08-06)
PROC: B5181ZA Fluoroscopy of Superior Vena Cava using Low Osmolar Contrast, Guidance (ICD-10-PCS; 2019-08-06)
PROC: B548ZZA Ultrasonography of Superior Vena Cava, Guidance (ICD-10-PCS; 2019-08-06)
DX: T88.6XXA Anaphylactic reaction due to adverse effect of correct drug or medicament properly administered, initial encounter (principal); E87.2 Acidosis; M32.9 Systemic lupus erythematosus, unspecified; E11.65 Type 2 diabetes mellitus with hyperglycemia; I48.91 Unspecified atrial fibrillation; T40.4X5A Adverse effect of other synthetic narcotics, initial encounter; I10 Essential (primary) hypertension; D64.9 Anemia, unspecified; D72.810 Lymphocytopenia; F17.210 Nicotine dependence, cigarettes, uncomplicated; G89.4 Chronic pain syndrome; I73.00 Raynaud's syndrome without gangrene; T69.9XXA Effect of reduced temperature, unspecified, initial encounter; J45.909 Unspecified asthma, uncomplicated; M19.90 Unspecified osteoarthritis, unspecified site; M70.71 Other bursitis of hip, right hip; Y93.89 Activity, other specified; X31.XXXA Exposure to excessive natural cold, initial encounter; Z82.49 Family history of ischemic heart disease and other diseases of the circulatory system; Z82.5 Family history of asthma and other chronic lower respiratory diseases; Z83.3 Family history of diabetes mellitus; Z86.718 Personal history of other venous thrombosis and embolism; Z88.6 Allergy status to analgesic agent; Z88.1 Allergy status to other antibiotic agents; Z88.8 Allergy status to other drugs, medicaments and biological substances; Z98.891 History of uterine scar from previous surgery; Z88.0 Allergy status to penicillin; Y92.89 Other specified places as the place of occurrence of the external cause; Z79.4 Long term (current) use of insulin
CPT/HCPCS: 36415; 36573; 36600; 71045; 76937; 80048; 81003; 82085; 82375; 82550; 82805; 82955; 82962; 83036; 83520; 84484; 85041; 85651; 86038; 86140; 86160; 86225; 86235; 86256; 86430; 86592; 86780; 86880; 93005; 93970; 94640; 99285; C1725; J0360; J1200; J1650; J1815; J2270; J2405; J2930; J3490; J7030; J7512; J7620

== ENCOUNTER → 2019-10-29 | Emergency (ER) | payer MEDICAID ==
[~2019-10-29] VITALS: Ht 160 cm; Wt 70.0 kg
[~2019-10-29] MED LIST changes: +ACETAMINOPHEN 325MG TABLET PO PRN; +CLONIDINE 0.1MG TABLET PO PRN; +DOCUSATE SODIUM 100MG CAPSULE PO PRN; +HYDR200T80 PO; +INSULIN GLARGINE UD 100 UNITS/ML SYR SUBCUT SCH; +KETOROLAC 30MG/ML VIAL IV PRN; +LISINOPRIL 20MG TABLET PO SCH; +MAGNESIUM/ALUMINUM HYDROXIDE/SIMETHICONE 30ML UDC PO PRN; +ONDANSETRON HCL 4MG/2ML INJ IV PRN; +ONDANSETRON HCL 4MG/2ML INJ IV SCH; +PRED10TA PO; +SODIUM CHLORIDE 0.9% 1,000 ML IV ONE; +SODIUM CHLORIDE 0.9% 1,000 ML IV SCH; -TRAZ-213 PO; +TRAZ-252 PO
[2019-10-30 02:26] LABS: CLARITY URINE CLEAR (CLEAR); COLOR URINE YELLOW (YELLOW); KETONES URINE TRACE (NEGATIVE); LEUKOCYTE ESTERASE URINE NEGATIVE (NEGATIVE); NITRITE URINE NEGATIVE (NEGATIVE); OCCULT BLOOD URINE TRACE (NEGATIVE); PROTEIN URINE 1+ (NEGATIVE); SPECIFIC GRAVITY URINE 1.031 (1.005-1.030); UROBILINOGEN URINE 0.2 E.U./dL (0.2-1.0)
[2019-10-30 03:21] LABS: EOSINOPHILS % 0.3 % (0.0-5.0); HEMATOCRIT. 35.2 % (36.0-48.0); HEMOGLOBIN. 11.6 g/dL (12.0-16.0); LYMPHOCYTES % 29.5 % (20.0-50.0); MEAN CORPUSCULAR HEMOGLOBIN 28.1 pg (28.0-32.0); MEAN CORPUSCULAR VOLUME 85.6 fL (81.0-99.0); MEAN PLATELET VOLUME 7.7 fl (7.4-10.4); MONOCYTES % 12.2 % (2.0-8.0); PLATELET 256 x1000/uL (130-400); RED BLOOD CELL COUNT 4.12 mill/uL (4.2-5.4); RED CELL DISTRIBUTION WIDTH 19.8 % (11.6-14.6)
[2019-10-30 03:35] LABS: CHLORIDE 97 mEq/L (98-107)
[2019-10-30 06:00] VITALS: BP 133/77
== END | disposition left against medical advice (07) ==
LOC: ER 20:35 → EDBEDREQTM 10-30 05:22 → EDBEDREQ 10-30 05:22 → ENRESERV 10-30 20:43 → CANBEDREQ 10-30 23:10
DX: E11.65 Type 2 diabetes mellitus with hyperglycemia (principal); I10 Essential (primary) hypertension; F99 Mental disorder, not otherwise specified; J45.909 Unspecified asthma, uncomplicated; Z98.890 Other specified postprocedural states; Z88.0 Allergy status to penicillin; Z88.6 Allergy status to analgesic agent; Z79.4 Long term (current) use of insulin
CPT/HCPCS: 81025; 93005; 96361; 96374; 99285; J2405; J7030

== ENCOUNTER 2019-10-30 07:08 | Emergency (ER) | payer MEDICAID ==
[~2019-10-30] VITALS: Ht 167.6 cm; Wt 70.0 kg
[~2019-10-30 07:08] MED LIST changes: -ACETAMINOPHEN 325MG TABLET PO PRN; -CLONIDINE 0.1MG TABLET PO PRN; -DOCUSATE SODIUM 100MG CAPSULE PO PRN; -INSULIN GLARGINE UD 100 UNITS/ML SYR SUBCUT SCH; -KETOROLAC 30MG/ML VIAL IV PRN; -LISINOPRIL 20MG TABLET PO SCH; -MAGNESIUM/ALUMINUM HYDROXIDE/SIMETHICONE 30ML UDC PO PRN; -ONDANSETRON HCL 4MG/2ML INJ IV PRN; -ONDANSETRON HCL 4MG/2ML INJ IV SCH; -SODIUM CHLORIDE 0.9% 1,000 ML IV ONE; -SODIUM CHLORIDE 0.9% 1,000 ML IV SCH
[2019-10-30] MEDS ORDERED: SODIUM CHLORIDE 0.9% 1,000 ML IV ONE (07:48)
[2019-10-30 08:35] LABS: BG BASE EXCESS -2.4 mmol/L (-2.0-2.0); BG CARBOXYHEMOGLOBIN 0.6 % (0.5-1.5); BG DEOXYHEMOGLOBIN 2.7 % (0.0-5.0); BG FRACTION INSPIRED OXYGEN 21; BG HCO3 ACT 22.5 mmol/L (22.0-26.0); BG OXYGEN SATURATION 97.3 % (92.0-98.5); BG OXYHEMOGLOBIN 96.7 % (94.0-97.0); BG PCO2 39.2 mmHg (35.0-45.0); BG PH 7.377 (7.350-7.450); BG PO2 103.9 mmHg (75.0-100.0); BG SAMPLE SITE RIGHT RADIAL; BG TOTAL HEMOGLOBIN 12.1 g/dL (12.0-18.0); BG VENT MODE ROOM AIR
[2019-10-30 10:16] LABS: BASOPHILS % 0.8 % (0.0-2.0); EOSINOPHILS % 0.2 % (0.0-5.0); HEMATOCRIT. 37.2 % (36.0-48.0); HEMOGLOBIN. 12.1 g/dL (12.0-16.0); MEAN CORPUSCULAR HEMOGLOBIN 28.4 pg (28.0-32.0); MEAN CORPUSCULAR VOLUME 87.1 fL (81.0-99.0); MONOCYTES % 6.9 % (2.0-8.0); NEUTROPHILS % 69.1 % (40.0-76.0); PLATELET 249 x1000/uL (130-400); RED BLOOD CELL COUNT 4.27 mill/uL (4.2-5.4); RED CELL DISTRIBUTION WIDTH 20.2 % (11.6-14.6)
[2019-10-30 10:27] LABS: CHLORIDE 96 mEq/L (98-107)
[2019-10-30 10:30] LABS: CLARITY URINE CLEAR (CLEAR); COLOR URINE YELLOW (YELLOW); KETONES URINE 1+ (NEGATIVE); LEUKOCYTE ESTERASE URINE NEGATIVE (NEGATIVE); NITRITE URINE NEGATIVE (NEGATIVE); OCCULT BLOOD URINE NEGATIVE (NEGATIVE); PROTEIN URINE 1+ (NEGATIVE); SPECIFIC GRAVITY URINE 1.031 (1.005-1.030); UROBILINOGEN URINE 0.2 E.U./dL (0.2-1.0)
[2019-10-30] MEDS ORDERED: DIPHENHYDRAMINE 50MG/ML VIAL IV ONE (10:30)
[2019-10-30] MEDS ORDERED: KETOROLAC 30MG/ML VIAL IV ONE (10:30)
[2019-10-30 10:40] LABS: BETA HYDROXYBUTYRATE 3.1 mMol/L (0.0-0.3)
[2019-10-30] MEDS ORDERED: INSULIN REGULAR (HUMULIN R) 300UNITS/3ML IV ONE (10:45)
[2019-10-30 11:04] LABS: HCG SCREEN NEGATIVE
[2019-10-30] MEDS ORDERED: SODIUM CHLORIDE 0.9% 1,000 ML IV SCH (12:52)
[2019-10-30] MEDS ORDERED: DIPHENHYDRAMINE 50MG/ML VIAL IV PRN (13:00)
[2019-10-30 13:34] LABS: PHOSPHORUS 4.6 mg/dL (2.5-4.9)
[2019-10-30] MEDS ORDERED: KETOROLAC 30MG/ML VIAL IV PRN (15:45)
[2019-10-30] MEDS ORDERED: QUETIAPINE FUMARATE 50MG TABLET PO SCH (15:45)
[2019-10-30] MEDS ORDERED: HYDROXYZINE 25MG TABLET PO SCH (15:45)
[2019-10-30 16:26] VITALS: BP 140/107
[2019-10-30] MEDS ORDERED: FERROUS SULFATE 325MG TABLET PO SCH (17:00)
[2019-10-30] MEDS ORDERED: INSULIN LISPRO 100 UNITS/ML SUBCUT SCH (17:50)
[2019-10-30] MEDS ORDERED: DILTIAZEM HCL 120MG CAPSULE CD 24HR PO SCH (21:00)
[2019-10-30] MEDS ORDERED: TRAZODONE HCL 50MG TABLET PO SCH (21:00)
[2019-10-30] MEDS ORDERED: FAMOTIDINE(NEO) 1MG/ML SUSP PO SCH (21:00)
[2019-10-30] MEDS ORDERED: CARVEDILOL 3.125 MG TABLET PO SCH (21:00)
[2019-10-30] MEDS ORDERED: INSULIN GLARGINE UD 100 UNITS/ML SYR SUBCUT SCH (22:00)
[2019-10-31] MEDS ORDERED: PREDNISONE 10MG TABLET PO SCH (09:00)
[2019-10-31] MEDS ORDERED: RIVAROXABAN 20 MG TABLET PO SCH (09:00)
[2019-10-31] MEDS ORDERED: ARIPIPRAZOLE 5MG TABLET PO SCH (09:00)
[2019-10-31] MEDS ORDERED: LISINOPRIL 40MG TABLET PO SCH (09:00)
[2019-10-31] MEDS ORDERED: HYDROXYCHLOROQUINE SULFATE 200MG TABLET PO SCH (09:00)
[2019-10-31] MEDS ORDERED: SERTRALINE HCL 100MG TABLET PO SCH (09:00)
== END 2019-10-30 16:32 | disposition left against medical advice (07) ==
LOC: ER 07:08 → CANRESERV 16:12 → ENRESERV 16:12 → CANBEDREQ 16:22 → ER 16:32
DX: E11.65 Type 2 diabetes mellitus with hyperglycemia (principal); I10 Essential (primary) hypertension; M32.9 Systemic lupus erythematosus, unspecified; E87.1 Hypo-osmolality and hyponatremia; I48.91 Unspecified atrial fibrillation; J45.909 Unspecified asthma, uncomplicated; Z98.890 Other specified postprocedural states; Z79.01 Long term (current) use of anticoagulants; Z88.0 Allergy status to penicillin; Z88.6 Allergy status to analgesic agent; Z88.5 Allergy status to narcotic agent; Z88.8 Allergy status to other drugs, medicaments and biological substances; Z79.4 Long term (current) use of insulin
CPT/HCPCS: 36415; 36600; 71045; 80053; 81003; 82010; 82375; 82805; 82962; 83735; 84100; 84703; 85025; 93005; 93970; 96361; 96374; 96375; 99285; J1200; J1815; J1885; J7030